=== PATIENT | female | born 1965 | race Caucasian/White ===

== ENCOUNTER 2025-05-20 09:04 | Emergency (ER) | payer OTHER, SELFPAY ==
--- NOTE | ~2025-05-20 | XR_ITS ---
EXAMINATION: XR KNEE, RIGHT CLINICAL INFORMATION: pain, s/p fall COMPARISON: None available. TECHNIQUE: Four views of the right knee. FINDINGS: No fracture or joint effusion. Alignment is anatomic. Mild tricompartmental joint space narrowing. No abnormal soft tissue calcification. XR/XR knee RT 3V IMPRESSION: No acute bony abnormalities of the right knee. No joint effusion. Mild tricompartmental osteoarthritis. Electronically signed by: Alfonso Kirk MD 05/20/2025 11:16 AM EDT
[2025-05-20 09:14] VITALS: BP 128/55; PULSE 66; RESP 16; TEMP 36; O2SAT 98; BMI 37.9
--- NOTE | 2025-05-20 11:34 | ED.EXTPRO ---
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 No other trauma reported. She notes it hurrts to walk. When it is bad she takes tylenol. She has not called her orthopedist or PCP. She denies swelling. MD Complaint: joint pain Onset (ago): week(s) (2) Pain Consistency: constant Location: right and knee Quality: aching Radiation: none Relieving factors: immobilization Exacerbating factors: weight bearing, walking and palpation Associated symptoms: denies other symptoms Context: other (fall) Related Data Previous Rx's ?Medication ?Instructions ?Recorded cyclobenzaprine 5 mg tablet 5 mg PO BID PRN muscle spasm #14 05/20/25 tabs lidocaine 5 % topical ointment 1 appl topical BEDTIME PRN pain 05/20/25 #30 grams Allergies Allergy/AdvReac Type Severity Reaction Status Date / Time No Known Allergies Allergy Verified 05/20/25 09:17 Review of Systems Review of Systems: Constitutional : No Fever, No Chills ENT/Mouth : No Ear Pain, No Hoarseness, No sore throat Eyes: No Eye Pain, No Swelling Cardiovascular : No Chest Pain, No SOB Respiratory : No Cough, No Dyspnea Gastrointestinal : No Nausea, No Vomiting Musculoskeletal : positive joint pain, No Myalgias, No Joint Swelling Skin : No Skin lacerations, No rash Neuro : No Weakness, No Numbness All other systems reviewed and are negative [facility] Past Medical History Attestation statement: The following information was validated with the patient. Source: old records reviewed Medical History Hypothyroidism Diabetes HTN (hypertension) Social History Social History (Updated 05/20/25 @ 11:39 by Bernarda Pritchard DO) Patient Tobacco Use Status: Never used Tobacco Physical Exam Vital Signs: Vital Signs: Last Vital Signs Temp 96.8 F 05/20/25 09:14 Pulse 66 05/20/25 09:14 Resp 16 05/20/25 09:14 BP 128/55 L 05/20/25 09:14 Pulse Ox 98 05/20/25 09:14 O2 Del Method Room Air 05/20/25 09:14 BMI result Body Mass Index 37.9 Appearance: Alert. Oriented X3. No acute distress. Eyes: Pupils equal, round and reactive to light. ENT: Pharynx normal. Neck: Normal inspection. . CVS: Normal heart rate and rhythm. Pulses normal. Respiratory: No respiratory distress. Breath sounds normal. Abdomen: atraumatic Skin: Skin warm and dry. Normal skin color. Extremities: No lower extremity edema. R knee no effusion, distal NV intact, SILT intact, pain along lateral aspect on joint line no discoloration, redness, no warmth. Pain with ROM testing, her ACL/MCL/LCL appear intact Neuro: Oriented X 3. No motor deficit. No sensory deficit. CN2-12 intact Medical Decision Making Medical Decision Making MDM Narrative: 59 yo female with PMH of prior R knee pain has seen orthopedist at [facility] - she has had steroid injections in the past, DM, HTN, hypothyroidism here with R knee pain which is chronic but worse after fall - she is NV intact, no signs of infection, no signs of calf pain/swelling to suggest DVT - at this time xray ordered and we discussed concern for internal injury that her PCP needs to get MRI as well as follow up with orthopedics. Start on topical gel and PRN flexeril as needed. Differential Diagnosis Differential Diagnoses: The differential diagnosis associated with the presentation includes sprain, strain, arthritis, internal injury such as meniscus injury NV exam normal pulses intact Independent Interpretation I performed an independent interpretation of an: Plain X-Ray (no fracture) Radiology Impression Discussion of test interpretation with radiology: I have reviewed the radiologist's reading. External Record Review External record reviewed: Outpatient record Prescription Management I considered prescription management with: Pain Medication and Other Discharge Plan Discharge Clinical Impression: Arthralgia of knee, right Patient Disposition: Home, Self-Care Instructions: Knee Pain (ED), Arthralgia (ED) Additional Instructions: your xray shows arthritis there is concern for possible injury to your meniscus of the knee please talk to your primary care doctor about getting MRI establish care again with your orthopedic doctor at [facility] return for any worsening symptoms or concerns. Prescriptions: New cyclobenzaprine 5 mg tablet 5 mg PO BID PRN (Reason: muscle spasm) Qty: 14 0RF lidocaine 5 % ointment 1 appl topical BEDTIME PRN (Reason: pain) Qty: 30 0RF Print Language: Sinhala
[2025-05-20 11:35] VITALS: BP 124/57; PULSE 56; RESP 18; O2SAT 95
[2025-05-20 11:38] VITALS: BP 124/57; PULSE 56; RESP 18; TEMP 36; O2SAT 95
--- OUTSIDE RECORDS SUMMARY | 2025-05-20 12:08 | XMS_ITS | Data Portability ---
Author Organization [facility], Main Office Address [address] [place] [id number] Assessment Encounter Date Assessment Date Assessment LastModified by Organization Details LastModified Time 09/05/2022 09/05/2022 Patient presente d to office today for their Medicare Annual Wellness Visit. Education was provided on healthy nutrition, including a diet rich in fruits and vegetables, minimizing simple carbohydrates, salt, and saturated fats. Encouraged regular cardiovascular exercise such as walking at least 30 minutes daily, 5 times per week. Emphasized preventive health measures and educated pt on fall prevention and community-based lifestyle interventions to help reduce health risks and promote healthy living. Not available 09/05/2022 13:29:53 Plan of Treatment Reminders Order Date Submit Date Provider Last Modified By Organization Details Last Modified Time Details Appointments None recorded. Lab CBC w/ auto diff [email or web address], [address] [place], [address], 3 15:49:02 CMP, serum or plasma 2021 022 [email or web address] [facility], [address] [place], [address], 3 15:49:03 HbA1c (hemoglobin A1c), blood 2021 [email or web address] [facility], [address] [place], [address], 3 15:49:03 CT + NG RNA, PCR, unspecified specimen 2021 [facility], [address] [place], [address], 2 09:25:42 RPR (rapid plasma reagin), serum 2021 [facility], [address] [place], [address], 2 09:25:43 HIV 1+2 AB + HIV 1 p24 Ag, qualitative immunoassay , serum [address], [address] [place], [address], 3 15:49:03 TSH, ultra-sensi tive, serum [address], [address] [place], [address], 3 15:49:04 HBsAg (hepatitis B surface Ag), serum 2021 [facility], [address] [place], [address], 2 09:25:40 hepatitis C virus Ab, serum 2021 [facility], [address] [place], [address], 2 09:25:40 gamma-gluta myl transferase (ggt), serum [address], [address] [place], [address], 3 15:49:04 lipid panel, serum [address], [address] [place], [address], 3 15:49:04 microalbumi n/creatinin e, mass ratio, urine 2021 [email or web address], [address] [place], [address], 3 15:49:04 vitamin D, 25-hydroxy, total, serum 2021 [email or web address], [address] [place], [address], 3 15:49:05 vitamin B12, serum [email or web address], [address] [place], [address], 3 15:49:05 H pylori urea breath test, co2 infrared 2021 [facility], [address] [place], [address], 2 09:25:41 TSH, serum or plasma 2021 [employer], [address] [place], [address], 2 06:09:55 T4, free, serum 2021 [employer] [facility], [address] [place], [address], 3 05:00:51 Referral orthopedic surgeon referral - B knee pain and LBP 2021 [email or web address], [address] [facility], [address], [place], [address], 2 09:04:00 cardiologis t referral - CHF, SOB 2021 [email or web address] Paul Quinn MD, [address] [facility], [address], [place], [address], 2 09:05:23 Procedures None recorded. Surgeries None recorded. Imaging MAMMO, screening, bilateral - screening [address] ([facility]), [address] [place] [address], [address], 3 16:21:34 bone density - screening [address] ([facility]), [address] [place] [address], [address], 3 16:21:34 MAMMO, screening, bilateral - [facility] [address] [place] [address], [address], 3 16:29:02 Medication Orders lidocaine-p rilocaine 2.5 %-2.5 % topical cream 2022 023 [facility], [address] [place], [address], 3 13:47:48 gabapentin 300 mg capsule 2022 023 [facility], [address] [place], [address], 3 13:47:50 atorvastati n 20 mg tablet 2022 023 [facility], [address] [place], [address], 3 13:47:50 aspirin 81 mg tablet,sweta yed release 2022 023 [facility], [address] [place], [address], 3 13:47:49 Farxiga 10 mg tablet 2022 023 [facility], [address] [place], [address], 3 13:47:50 metformin 1,000 mg tablet 2022 023 [facility], [address] [place], [address], 3 13:47:49 Trulicity 1.5 mg/0.5 mL subcutaneou s pen injector 2022 023 [facility], 09[address] [facility] [place], [address], 3 13:47:51 meclizine 25 mg tablet 2022 023 [facility], [address] [place], [address], 3 13:47:48 omeprazole 20 mg capsule,del ayed release 2022 023 [facility], 09-25 [facility] [place], [address], 3 13:47:49 Myrbetriq 25 mg tablet,exte nded release 2022 023 [facility], [address] [place], [address], 3 13:47:51 levothyroxi ne 137 mcg tablet 2022 023 [facility], [address] [place], [address], 3 13:47:46 lidocaine-p rilocaine 2.5 %-2.5 % topical cream 2021 022 [facility], [address] [place], [address], 13:41:32 gabapentin 300 mg capsule 2021 [facility], [address] [place], [address], 13:41:31 atorvastati n 20 mg tablet 2021 [facility], [address] [place], [address], 13:41:32 aspirin 81 mg tablet,sweta yed release 2021 [facility], [address] [place], [address], 13:41:34 Farxiga 10 mg tablet 2021 [facility], [address] [place], [address], 13:41:33 metformin 1,000 mg tablet 2021 [facility], [address] [place], [address], 13:41:35 Trulicity 1.5 mg/0.5 mL subcutaneou s pen injector 2021 [facility], [address] [place], [address], 13:41:29 Myrbetriq 25 mg tablet,exte nded release 2021 [facility], [address] [place], [address], 13:41:31 simethicone 180 mg capsule 2021 [facility], [address] [place], [address], 13:41:36 diclofenac 1 % topical gel 2021 [facility], [address] [place], [address], 13:41:34 meclizine 25 mg tablet 2021 [facility], [address] [place], [address], 13:41:29 omeprazole 20 mg capsule,del ayed release 2021 [facility], 09[address] [place], [address], 13:41:30 levothyroxi ne 137 mcg tablet 2021 [facility], [address] [place], [address], 13:41:35 lidocaine-p rilocaine 2.5 %-2.5 % topical cream 2021 [facility], [address] [place], [address], 14:02:18 gabapentin 300 mg capsule 2021 [facility], 09[address] [place], [address], 14:02:22 atorvastati n 20 mg tablet 2021 [facility], [address] [place], [address], 14:02:18 aspirin 81 mg tablet,sweta yed release 2021 [facility], 09[address] [place], [address], 14:02:08 Farxiga 10 mg tablet 2021 [facility], 09[address] [place], [address], 14:02:13 metformin 1,000 mg tablet 2021 [facility], 09[address]25 [place], [address], 14:02:04 Trulicity 1.5 mg/0.5 mL subcutaneou s pen injector 2021 [facility], [address]25 [place], [address], 14:02:05 Myrbetriq 25 mg tablet,exte nded release 2021 [facility], [address] [place], [address], 14:02:09 simethicone 180 mg capsule 2021 [facility], [address] [place], [address], 14:02:15 fluticasone propionate 50 mcg/actuati on nasal spray,suspe nsion 2021 [facility], [address] [place], [address], 14:02:11 montelukast 10 mg tablet 2021 [facility], [address] [place], [address], 14:02:14 loratadine 10 mg tablet 2021 [facility], [address] [place], [address], 14:02:17 diclofenac 1 % topical gel 2021 [facility], [address] [place], [address], 14:02:22 meclizine 25 mg tablet 2021 [facility], [address] [place], [address], 14:02:15 omeprazole 20 mg capsule,del ayed release 2021 [facility], [address] [place], [address], 14:02:04 levothyroxi ne 137 mcg tablet 2021 [facility], 09[address] [place], [address], 14:02:10 gabapentin 300 mg capsule 2021 [facility], [address] [place], [address], 14:14:08 simethicone 180 mg capsule 2021 [facility], 09[address]25 [place], [address], 14:14:11 lidocaine-p rilocaine 2.5 %-2.5 % topical cream 2021 [facility], [address] [place], [address], 14:14:05 fluticasone propionate 50 mcg/actuati on nasal spray,suspe nsion 2021 [facility], [address] [place], [address], 14:14:08 montelukast 10 mg tablet 2021 [facility], 09[address] [place], [address], 14:14:14 loratadine 10 mg tablet 2021 [facility], [address] [place], [address], 14:14:09 atorvastati n 20 mg tablet 2021 [facility], [address] [place], [address], 14:14:09 aspirin 81 mg tablet,sweta yed release 2021 [facility], [address] [place], [address], 14:14:06 Farxiga 10 mg tablet 2021 [facility], [address] [place], [address], 14:14:01 metformin 1,000 mg tablet 2021 [facility], [address] [place], [address], 14:14:12 Trulicity 1.5 mg/0.5 mL subcutaneou s pen injector 2021 [facility], [address] [place], [address], 14:14:10 diclofenac 1 % topical gel 2021 [facility], [address] [place], [address], 14:14:11 meloxicam 15 mg tablet 2021 [facility], [address] [place], [address], 14:14:07 meclizine 25 mg tablet 2021 [facility], [address] [place], [address], 14:14:04 omeprazole 20 mg capsule,del ayed release 2021 [facility], [address] [place], [address], 14:14:06 Myrbetriq 25 mg tablet,exte nded release 2021 [facility], [address] [place], [address], 14:14:00 levothyroxi ne 125 mcg tablet 2021 [facility], [address] [place], [address], 14:14:07 simethicone 180 mg capsule 2021 [facility], [address] [place], [address], 06/22/202 2 13:34:36 azelastine 0.05 % eye drops 2021 [facility], [address] [place], [address], 2 13:34:35 lidocaine-p rilocaine 2.5 %-2.5 % topical cream 2021 [facility], [place], [address], 13:34:27 fluticasone propionate 50 mcg/actuati on nasal spray,suspe nsion 2021 [facility], [address] [place], [address], 13:34:32 montelukast 10 mg tablet 2021 [facility], [address] [place], [address], 13:34:34 loratadine 10 mg tablet 2021 [facility], [address] [place], [address], 13:34:35 atorvastati n 20 mg tablet 2021 [facility], [address] [place], [address], 2 13:34:31 aspirin 81 mg tablet,sweta barbrad release 2021 [facility], [place], [address], 2 13:34:36 Farxiga 10 mg tablet 2021 [facility], [address] [place], [address], 13:34:26 metformin 1,000 mg tablet 2021 [facility], [address] [place], [address], 13:34:26 Trulicity 1.5 mg/0.5 mL subcutaneou s pen injector 2021 [facility], [address] [place], [address], 13:34:29 diclofenac 1 % topical gel 2021 [facility], [address] [place], [address], 13:34:33 meloxicam 15 mg tablet 2021 [facility], [address] [place], [address], 13:34:31 meclizine 25 mg tablet 2021 [facility], [address] [place], [address], 13:34:28 Vitamin D3 50 mcg (2,000 unit) capsule 2021 [facility], [address] [place], [address], 13:34:33 omeprazole 20 mg capsule,del ayed release 2021 [facility], [address] [place], [address], 13:34:25 Myrbetriq 25 mg tablet,exte nded release 2021 022 [facility], [address], [address], 13:34:28 levothyroxi ne 112 mcg tablet 2021 022 [facility], [address] [place], [address], 13:34:30 Patient TargetsNo targets recorded. Patient Instructions Encounter Date Encounter Id Patient Instructions Last Modified By Organization Details Last Modified Time 09/05/2022 [id number] advance care planning: care instructions Not available 09/05/2022 13:36:37 Discussed and explained advance directives such as standard forms to the . Face to face discussion lasted for a duration of ___ minutes. [email or web address] Not available 09/05/2022 12:59:31 Reason for Referral Orthopedic Surgeon Referral for Lumbago with sciatica B knee pain and LBP Referring Physician: Cory Granados, Internal Medicine, Encounter Date: 07/25/2022 Spool Salvager Referral for Co ngestive heart failure CHF, SOB Referring Physician: Cory Granados, Internal Medicine, Encounter Date: 07/25/2022 Results Created Date Observation Date Name Description Value Unit Range Abnormal Flag Note LastModifiedBy Organization Detail LastModifiedTime 05/02/2005/05/2022 TSH W/REF SVIA TO FT4 TSH w/reflex to FT4 6.09 mIU/L high Refer ence Range > or = 20 Years 0.40- 4.50 Pregn tanya Range s First trime ster 0.26- 2.66 Secon d trime ster 0.55- 2.73 Third trime ster 0.43- 2.91 Not Available [facility] [address], [place], [address], 05/05/2022 06:09:53 05/02/2005/05/2022 TSH W/REF SIVA TO FT4 T4, free 1.0 NG/dL 0.8-1. 8 normal Not Available [facility] [place] [facility] [address] [place], [address], 05/05/2022 06:09:53 07/25/2007/28/2022 HIV 1/2 ANTIG EN/AN TIBOD Y,FOU RTH GENER ATION W/RFL HIV Ag/Ab, 4TH gen NON-RE ACTIVE non-re active normal HIV-1 antig en and HIV-1 /HIV- 2 antib odies were not detec deborah. There is no labor atory evide nce of HIV infec tion. PLEAS E NOTE: This infor matio n has been discl osed to you from recor sandra whose confi denti ality may be prote cted by state law. If your state requi res such prote ction , then the state law prohi bits you from joaquín viera any furth er discl osure of the infor matio n witho ut the speci fic writt en conse nt of the perso n to whom it perta ins, or as other san permi tted by law. A gener al autho rizat ion for the relea se of medic al or other infor matio n is NOT suffi cient for this purpo se. For addit ional infor matio n pleas e refer to http: //[facility] julee branham.que stdia gnost ics.c om/fa q/FAQ 106 (This link is being provi ded for infor matio nal/ educa aggie l purpo ses only. ) The perfo rmanc e of this assay has not been clini rogelio valid ated in patie nts less than 2 years old. Not Available [facility] [place] [facility] [address], [place], [address], 07/28/2022 09:25:36 07/25/2007/28/2022 MAGNE SIUM magnesium 2.0 mg/dL 1.5-2. 5 normal Not Available [facility] [place] [facility] [address], [place], [address], 07/28/2022 09:25:36 07/25/20 22 08/06/2022 NT PROBN P nt probnp 66 pg/mL normal For Heart Failu re (HF) diagn osis, refer ence range s in patie nts with dyspn ea are based on Boris DUTTA, et al., J Am Sharri Cardi ol. 2018; 71:11 91-12 00. 18-49 years : < or = 300 pg/mL Ondina l, HF unlik katie > or = 450 pg/mL High proba bilit y of HF 50-75 years : < or = 300 pg/mL Ondina l, HF unlik katie > or = 900 pg/mL High proba bilit y of HF >75 years : < or = 300 pg/mL Ondina l, HF unlik katie > or = 1800 pg/mL High proba bilit y of HF For patie nts with coron sunny heart disea se, the optim al risk categ ory cut point s for incid ent HF or CVD (<253 pg/mL men, <372 pg/mL women ) are based on Luis De La Rosa al., J Am Sharri Cardi ol. 2007; 50:20 5-14. For patie nts with exist ing HF, the optim al risk categ ory cut point for HF progr essio n (<300 pg/mL ) is based on Judah KIM et al., Clin Bioch em. 2010; 43:14 05-10 . For addit ional infor carley mcdonald e refer to http: //[facility] julee silva stdia gnost ics.c om/fa q/FAQ (This link is being provi ded for infor adam hayden/ educa aggie munguia purpo ses only. ) Not Available [facility] [place] [facility] [address], [place], [address], 08/06/2022 00:58:13 07/25/20 22 08/06/2022 VITAM IN D, 1,25 DIHYD EUNICE vitamin D, 1,25 (oh)2, total 52 pg/mL 18-72 Not Available [facility] [place] [facility] [address], [place], [address], 08/06/2022 00:58:14 07/25/2008/06/2022 VITAM IN D, 1,25 DIHYD EUNICE vitamin D3, 1,25 (oh)2 52 pg/mL Not Available [facility] [place] [facility] [address], [place], [address], 08/06/2022 00:58:14 07/25/20 22 08/06/2022 VITAM IN D, 1,25 DIHYD EUNICE vitamin D2, 1,25 (oh)2 <8 pg/mL Vitam in D3, 1,25( OH)2 indic ates both endog enous produ ction and suppl ement ation . Vitam in D2, 1,25( OH)2 is an indic ator of exoge nous sourc es, such as diet or suppl ement ation . Inter preta tion and thera py are based on measu remen t of Vitam in D,1,2 5(OH) 2, Total . This test was silver kaufman and its dennis tical perfo rmanc e milagro cteri stics have been deter mined by [facility] erika chandler [facility], [place], [place]. It has not been clear ed or appro tc by the FDA. This assay has been valid ated pursu ant to the CLIA regul ation s and is used for clini thuy purpo ses. Not Available [facility] [place] [facility] [address], [place], [address], 08/06/2022 00:58:14 07/25/2007/28/2022 SED RATE BY MODIF IED LOYD HOREN sed rate by modified lobitoren 31 mm/h < or = 30 high Not Available [facility] [place] [facility] [address], [place], [address], 07/28/2022 09:25:38 07/25/2007/28/2022 CBC (H/H, RBC, INDIC ES, WBC, PLT) white blood cell count 10.5 thous and/u L 3.8-10 .8 normal Not Available [facility] [address], [place], [address], 07/28/2022 09:25:38 07/25/20 22 07/28/2022 CBC (H/H, RBC, INDIC ES, WBC, PLT) red blood cell count 4.00 johnie on/uL 3.80-5 .10 normal Not Available [facility] [address], [place], [address], 07/28/2022 09:25:38 07/25/20 22 07/28/2022 CBC (H/H, RBC, INDIC ES, WBC, PLT) hemoglobin 11.8 g/dL 11.7-1 5.5 normal Not Available [facility] [address], [place], [address], 07/28/2022 09:25:38 07/25/20 22 07/28/2022 CBC (H/H, RBC, INDIC ES, WBC, PLT) hematocrit 36.2 % 35.0-4 5.0 normal Not Available [facility] [address], [place], [address], 07/28/2022 09:25:38 07/25/20 22 07/28/2022 CBC (H/H, RBC, INDIC ES, WBC, PLT) MCV 90.5 fL 80.0-1 00.0 normal Not Available [facility] [address], [place], [address], 07/28/2022 09:25:38 07/25/20 22 07/28/2022 CBC (H/H, RBC, INDIC ES, WBC, PLT) MCH 29.5 pg 27.0-3 3.0 normal Not Available [facility] [address], [place], [address], 07/28/2022 09:25:38 07/25/2007/28/2022 CBC (H/H, RBC, INDIC ES, WBC, PLT) MCHC 32.6 g/dL 32.0-3 6.0 normal Not Available [facility] [address], [place], [address], 07/28/2022 09:25:38 07/25/20 22 07/28/2022 CBC (H/H, RBC, INDIC ES, WBC, PLT) RDW 12.7 % 11.0-1 5.0 normal Not Available [facility] [address], [place], [address], 07/28/2022 09:25:38 07/25/2007/28/2022 CBC (H/H, RBC, INDIC ES, WBC, PLT) platelet count 312 thous and/u L 140-40 0 normal Not Available [facility] [address], [place], [address], 07/28/2022 09:25:38 07/25/20 22 07/28/2022 CBC (H/H, RBC, INDIC ES, WBC, PLT) MPV 10.2 fL 7.5-12 .5 normal Not Available [facility] [address], [place], [address], 07/28/2022 09:25:38 07/25/2008/06/2022 URINA LYSIS , COMPL ETE W/REF SIVA TO CULTU RE color YELLOW yellow normal Not Available [facility] [address], [place], [address], 08/06/2022 00:58:15 07/25/2008/06/2022 URINA LYSIS , COMPL ETE W/REF SIVA TO CULTU RE appearance CLEAR clear normal Not Available [facility] [place] [facility] [address], [place], [address], 08/06/2022 00:58:15 07/25/20 22 08/06/2022 URINA LYSIS , COMPL ETE W/REF SIVA TO CULTU RE specific gravity 1.017 1.001- 1.035 normal Not Available [facility] [place] [facility] [address], [place], [address], 08/06/2022 00:58:15 07/25/2008/06/2022 URINA LYSIS , COMPL ETE W/REF SIAV TO CULTU RE pH 5.5 5.0-8. 0 normal Not Available [facility] [place] [facility] [address], [place], [address], 08/06/2022 00:58:15 07/25/20 22 08/06/2022 URINA LYSIS , COMPL ETE W/REF SIVA TO CULTU RE glucose NEGATI VE negati ve normal Not Available [facility] [place] [facility] [address], [place], [address], 08/06/2022 00:58:15 07/25/2008/06/2022 URINA LYSIS , COMPL ETE W/REF SIVA TO CULTU RE bilirubin NEGATI VE negati ve normal Not Available [facility] [place] [facility] [address], [place], [address], 08/06/2022 00:58:15 07/25/20 22 08/06/2022 URINA LYSIS , COMPL ETE W/REF SIVA TO CULTU RE ketones NEGATI VE negati ve normal Not Available [facility] [address], [place], [address], 08/06/2022 00:58:15 07/25/20 22 08/06/2022 URINA LYSIS , COMPL ETE W/REF SIVA TO CULTU RE occult blood NEGATI VE negati ve normal Not Available [facility] [place] [facility] [address], [place], [address], 08/06/2022 00:58:15 07/25/20 22 08/06/2022 URINA LYSIS , COMPL ETE W/REF SIVA TO CULTU RE protein NEGATI VE negati ve normal Not Available [facility] [place] [facility] [address], [place], [address], 08/06/2022 00:58:15 07/25/20 22 08/06/2022 URINA LYSIS , COMPL ETE W/REF SIVA TO CULTU RE nitrite NEGATI VE negati ve normal Not Available [facility] [address], [place], [address], 08/06/2022 00:58:15 07/25/20 22 08/06/2022 URINA LYSIS , COMPL ETE W/REF SIVA TO CULTU RE leukocyte esterase 2+ negati ve abnormal Not Available [facility] [address], [place], [address], 08/06/2022 00:58:15 07/25/20 22 08/06/2022 URINA LYSIS , COMPL ETE W/REF SIVA TO CULTU RE WBC 0-5 /hpf < or = 5 normal Not Available [facility] [address], [place], [address], 08/06/2022 00:58:15 07/25/2008/06/2022 URINA LYSIS , COMPL ETE W/REF SIVA TO CULTU RE RBC NONE SEEN /hpf < or = 2 normal Not Available [facility] [address], [place], [address], 08/06/2022 00:58:15 07/25/20 22 08/06/2022 URINA LYSIS , COMPL ETE W/REF SIVA TO CULTU RE squamous epithelial cells NONE SEEN /hpf < or = 5 normal Not Available [facility] [place] [facility] [address], [address], 08/06/2022 00:58:15 07/25/20 22 08/06/2022 URINA LYSIS , COMPL ETE W/REF SIVA TO CULTU RE bacteria NONE SEEN /hpf none seen normal Not Available [facility] [place] [facility] [address], [address], 08/06/2022 00:58:15 07/25/20 22 08/06/2022 URINA LYSIS , COMPL ETE W/REF SIVA TO CULTU RE hyaline cast NONE SEEN /lpf none seen normal Not Available [facility] [place] [facility] [address], [place], [address], 08/06/2022 00:58:15 07/25/20 22 08/06/2022 URINA LYSIS , COMPL ETE W/REF SIVA TO CULTU RE reflexive urine culture CULTU RE INDIC ATED - RESUL TS TO FOLLO W Not Available [facility] [place] [facility] [address], [address], 08/06/2022 00:58:15 07/25/20 22 08/06/2022 URINA LYSIS , COMPL ETE W/REF SIVA TO CULTU RE culture, urine, routine SEE NOTE abnormal CULTU RE, URINE , ROUTI NE Micro Numbe r: [id number] Test Statu s: Final Speci men Sourc e: Urine Speci men Quali ty: Adequ ate Resul t: 10,00 0-49, 000 CFU/m L of Enter ococc us facyril Tayloranna calis ----- ----- ----- - INT DINA AMPIC ILLIN S <=2 NITRO FURAN TOIN S <=16 VANCO MYCIN S 2 S=Trinity cepti ble I=Int ermed iate R=Res istan t * = Not Teste d NR = Not Repor deborah NN = See Thera py Comme nts Not Available [facility] [place] [facility] [address], [address], 08/06/2022 00:58:15 07/25/20 22 07/28/2022 C-KAYA CTIVE PROTE IN C-reactive protein 15.1 mg/L <8.0 high Not Available [facility] [place] [facility] [address], [place], [address], 07/28/2022 09:25:39 07/25/20 22 07/28/2022 HEPAT ITIS B SURFA CE ANTIG EN W/REF L CONFI RM hepatitis B surface antigen NON-RE ACTIVE non-re active normal Not Available [facility] [place] [facility] [address], [place], [address], 07/28/2022 09:25:39 07/25/20 22 07/28/2022 HEPAT ITIS C AB W/REF L TO HCV RNA, QN, PCR hepatitis C antibody NON-RE ACTIVE non-re active normal Not Available [facility] [place] [facility] [address], [address], 07/28/2022 09:25:40 07/25/20 22 07/28/2022 HEPAT ITIS C AB W/REF L TO HCV RNA, QN, PCR index 0.16 <1.00 normal HCV antib luis was non-r eacti ve. There is no labor atory evide nce of HCV infec tion. In most cases , no furth er actio n is requi red. Howev er, if recen t HCV expos ure is suspe cted, a test for HCV RNA (test code 30518 ) is sugge sted. For addit ional infor matdheeraj n pleas e refer to http: //edu catio n.que stdia gnost ics.c om/fa q/FAQ 22v1 (This link is being provi ded for infor matdheeraj nal/ educa aggie l purpo ses only. ) Not Available [facility] [place] [facility] [address] [place], [address], 07/28/2022 09:25:40 07/25/20 22 07/28/2022 HEPAT ITIS B SURFA CE AB IMMUN ITY, QN hepatitis B surface Ab immunity, qn TNP TEST NOT PERFO RMED Test order ed in error . Not Available [facility] [place] [facility] [address], [place], [address], 07/28/2022 09:25:40 07/25/20 22 08/06/2022 HELIC OBACT ER PYLOR I, UREA BREAT H TEST helicobacter pylori, urea breath test NOT DETECT ED not detect ed normal Antim icrob ials, dao n pump inhib itors , and bismu th prepa ratio ns are known to suppr ess H. pylor i, and inges tion of these prior to H. pylor i diagn ostic testi ng may lead to false negat kenia resul ts. If clini rogelio indic ated, the test may be repea deborah on a new speci men obtai garret two weeks after disco ntinu ing treat ment. Howev er, a posit kenia resul t is still clini rogelio valid . Not Available [facility] [place] [facility] [address], [place], [address], 08/06/2022 00:58:18 07/25/20 22 07/28/2022 VITAM IN B12/F OLATE , SERUM PANEL vitamin B12 1830 pg/mL 200-11 00 high Not Available [facility] [place] [facility] [address], [address], 07/28/2022 09:25:41 07/25/20 22 07/28/2022 VITAM IN B12/F OLATE , SERUM PANEL folate, serum 8.6 NG/mL normal Refer ence Range Low: <3.4 Borde rline : 3.4-5 .4 Ondina l: >5.4 Not Available [facility] [place] [facility] [address], [address], 07/28/2022 09:25:41 07/25/20 22 07/28/2022 TSH W/REF SIVA TO FT4 TSH w/reflex to FT4 0.66 mIU/L normal Refer ence Range > or = 20 Years 0.40- 4.50 Pregn tanya Range s First trime ster 0.26- 2.66 Secon d trime ster 0.55- 2.73 Third trime ster 0.43- 2.91 Not Available [facility] [place] [facility] [address], [address], 07/28/2022 09:25:42 07/25/20 22 07/28/2022 CHLAM YDIA/ N. GONOR RHOEA E RNA, TMA, UROGE NITAL chlamydia trachomatis RNA, tma, urogenital NOT DETECT ED not detect ed normal Not Available [facility] [place] [facility] [address], [address], 07/28/2022 09:25:42 07/25/20 22 07/28/2022 CHLAM YDIA/ N. GONOR RHOEA E RNA, TMA, UROGE NITAL neisseria gonorrhoeae RNA, tma, urogenital NOT DETECT ED not detect ed normal Not Available [facility] [place] [facility] [address], [address], 07/28/2022 09:25:42 07/25/20 22 07/28/2022 CHLAM YDIA/ N. GONOR RHOEA E RNA, TMA, UROGE NITAL comment The dennis tical perfo rmanc e milagro cteri stics of this assay , when used to test SureP ath(T M) speci mens have been deter mined by [facility]. The modif icati ons have not been clear ed or appro tc by the FDA. This assay has been valid ated pursu ant to the CLIA regul ation s and is used for clini thuy purpo ses. For addit ional reaganr carley mcdonald refer to https ://ed ucati on.qu juanSolace [employer]. Immedia/f aq/FA Q154 (This link is being provi ded for infor adam branham/ johana marcial l purpo ses only. ) Not Available [facility] [place] [facility] [address], [address], 07/28/2022 09:25:42 07/25/2008/06/2022 RPR (DX) W/REF L TITER AND CONFI RMATO RY TESTI NG RPR (DX) w/refl titer and confirmatory testing REACTI VE non-re active abnormal Not Available [facility] [place] [facility] [address], [address], 08/06/2022 00:58:20 07/25/20 22 08/06/2022 RPR (DX) W/REF L TITER AND CONFI RMATO RY TESTI NG RPR titer 1:1 high Not Available [facility] [place] [facility] [address], [address], 08/06/2022 00:58:20 07/25/2008/06/2022 FTA-A BS fta-abs NONREA CTIVE nonrea ctive The FTA-A BS is a trepo nemal assay that is inten ded to be used with other tests (e.g. , RPR) as part of a diagn ostic algor ithm in the diagn osis of syphi lis. Not Available [facility] [place] [facility] [address], [address], 08/06/2022 00:58:13 07/25/20 22 07/25/2022 HbA1c (hemo globi n A1c), blood A1C 6.7 Not Available Not Availa ble 07/26/2022 11:42:02 07/25/20 22 07/25/2022 lipid panel , blood A1C 6.7 Not Available Not Availa ble 07/26/2022 11:42:01 07/25/20 22 07/25/2022 CMP, serum or plasm a A1C 6.7 Not Available Not Availa ble 07/26/2022 11:39:27 11/21/19 23 11/26/2022 MAGNE SIUM magnesium 2.0 mg/dL 1.5-2. 5 normal Not Available [facility] [place] [facility] [address], [place], [address], 11/26/2022 07:47:10 11/21/19 23 11/21/2022 GFR, estim ated (eGFR ), serum A1C 7.1 Not Available Not Availa ble 11/22/2022 20:50:44 11/21/19 23 11/21/2022 BMP, serum or plasm a A1C 7.1 Not Available Not Availa ble 11/22/2022 20:50:44 11/21/19 23 11/21/2022 HbA1c (hemo globi n A1c), blood A1C 7.1 Not Available Not Availa ble 11/22/2022 20:49:56 Result Notes None recorded. Problems Name Problem SNOMED Code Status Onset Date Resolution Date Notes Provider Name and Address Organization Details Recorded Time Hypothyr oidism 28304898 Active 2019 JEISON JS [employer], [facility] 0 16:03:33 Hyperten sive disorder 06493699 Active 2019 JEISON [employer] [facility] 0 16:03:37 Impaired glucose toleranc e 3550796 Active 2019 JEISON JS null, [employer], [employer] 0 16:03:42 Hypercho lesterol emia 08117216 Active 2019 JEISON JS [employer], [facility] 0 16:03:47 Depressi ve disorder 54768417 Active 2019 JEISON JS null, [place] - [employer] 0 16:03:53 Anxiety disorder 426471362 Active 2019 JEISON JS null, [facility] 0 16:03:59 Insomnia 082992477 Active 2019 JEISON JS null, [place] [facility] 0 16:04:08 Arthriti s 7043341 Completed 201907/15/2020 Cory Granados, DO [address] [facility],[address], [place], [address] , [facility] [employer] 0 16:38:28 Edema of lower extremit y 980773484 Active 2019 JEISON JS null, [place] [facility] 0 16:04:42 Fibromya lgia 660365093 Completed 201907/15/2020 AALIYAH BUSCH null, [place] [facility], [employer] 1 16:25:47 Internal hemorrho ids 82584644 Active 2019 JEISON JS null, [place] [facility] 0 16:12:09 Primary fibromya lgia syndrome 14791472 Active 2019 Cory Granados, DO [address] [place] [address],[address], [place], [address] , [facility] 0 16:37:49 Endometr ial biopsy Active 2019 Cory Granados, [address], [place], [address] , [facility] 0 16:38:13 Morbid obesity 506957452 Active 2019 Cory Granados, DO [address] [place] [address],[address], [place], [address] , [facility] [employer] 0 16:38:22 Osteoart hritis 428539092 Active 2019 Cory Granados, DO [address] [place] [address],[facility] [address], [place], [address] , [employer] 0 16:38:33 Ophthalm ic migraine 26454856 Active 2019 Cory Granados, [address],[facility] [address], [place], [address] , [facility] 0 16:40:17 Vertigo 883045760 Active 2019 Cory Granados, [address],[facility] [address] , [place], [address] , [employer] 0 16:40:23 Multiple complica tions due to type 2 diabetes mellitus Active 2019 Cory Granados [address],[facility] [address], [place], [address] , [facility] 0 16:40:40 Chronic low back pain 432925975 Active 2019 s/p LESI, [facility] pain mgmt Cory Granados, [address],[facility] [address] , [place], [address] , [facility] 0 16:41:04 Visual impairme nt 321359067 Active 2019 glasses Cory Granados, [address],[facility] [address] , [place], [address] , [facility] 0 16:41:43 Pain of sacroili ac joint 480659247 Active 2019 Cory Granados, [address],[facility] [address], [place], [address] , [place] [employer] 0 16:42:11 Greater trochant carlos pain syndrome 3825195 Active 2019 Cory Granados, [address],[facility] [address], [place], [address] , [facility] 0 16:42:33 Iliotibi al band friction syndrome 197148820 Active 2019 Cory Granados, DO [address] [facility],[address], [place], [address] , [place] [employer], [employer] 0 16:42:42 Lumbago with sciatica 189753457 Active 2019 Cory Granados, DO [address] [facility],[address], [place], [address] , [employer], [employer] 0 16:43:02 Gasping for breath 25850600 Active 2020 AALIYAH JO-ANN [employer], [facility] [employer], [employer] 1 09:28:20 Fibromya lgia 877648118 Active 2020 AALIYAH JO-ANN null, [facility] [employer], [employer] 16:25:47 Migraine 17552339 Active 2020 AALIYAH JO-ANN [employer], [facility] [employer], [employer] 1 16:27:13 Gastroes ophageal reflux disease without esophagi tis 029972233 Active 2020 AALIYAH JO-ANN [employer], [facility] [employer], [employer] 1 16:27:58 Urinary incontin ence 696697379 Active 2020 AALIYAH JO-ANN null, [facility] [employer], [employer] 1 16:33:54 Seasonal allergic rhinitis 790025379 Active 2020 AALIYAH JO-ANN null, [facility] [employer], [employer] 1 16:49:41 Mixed anxiety and depressi ve disorder 287113582 Active 2020 AALIYAH JO-ANN null, [facility] [employer], [employer] 1 16:49:47 Vitamin D deficien cy 39435130 Active 2020 AALIYAH JO-ANN null, [employer], [employer] 16:49:50 Cobalami n deficien cy 354255674 Active 2020 AALIYAH JO-ANN null, [place] [facility], [employer] 1 16:49:54 Cobalami n deficien cy 188113725 Active 2020 AALIYAH JO-ANN null, [facility] 1 16:49:58 Chest pain 48636071 Active 2020 AALIYAH BUSCH null, [employer] 1 16:50:21 Dysuria 28516412 Active 2020 AALIYAH BUSCH null, [facility] 1 11:14:00 Fatigue 76310183 Active 2020 AALIYAH BUSCH [employer], [facility] 1 11:23:35 Bilatera l knee pain Active 2020 AALIYAH BUSCH [employer], [facility] 1 11:25:55 Changes in skin texture 251103275 Active 2020 AALIYAH BUSCH [employer], [facility] 1 09:32:39 Pain of left wrist 41942854822 9102 Active 2020 AALIYAHKENNETH BUSCH [employer], [facility] 1 14:21:15 Elevated blood-pr essure reading without diagnosi s of hyperten buddy 483998132 Active 2020 AALIYAH BUSCH [employer], [facility] 1 16:38:16 Problem Notes None recorded. Procedures Surgical History Date Name Laterality Status Provider Name and Address Organization Details Recorded Time delivery completed JEISON [employer] 07/15/2020 16:08:32 repair of umbilical hernia completed JEISON [employer] 07/15/2020 16:08:44 Imaging Results None recorded. Procedure Notes None recorded. Medical Equipment None Reported. Allergies Allergen ID Allergen Name Allergen Category Reaction Reaction Severity Criticality Documentation Date Start Date Code Code System Note Provider Name and Address Organization Details Recorded Time 3839 cyclobenz aprine medicatio n confusion moderate Not available 07/15/2020 51955 [facility] Cory Granados, DO [address] [place] [address], [place], [address] [facility] [employer] 0 16:56:36 Medications Name Sig Start Date Stop Date Status Note LastModified by Organization Details LastModified Time Prescriptio n - Prior Authorizati on Request active Not Available Not Available N ot Available metformin 500 mg tablet TAKE 1 TABLET BY MOUTH TWICE DAILY active Not Available Not Available No t Available levothyroxi ne 137 mcg tablet Take 1 tablet every day by oral route before meals. 2022 active Not Available Not Available Not Avai lable azelastine 0.05 % eye drops ONE DROP IN EACH EYE TWICE A DAY DIRECTED active Not Available Not Available No t Available acetaminoph en 325 mg tablet Take 1 tablet as needed by oral route for 15 days. 07/15 completed Not Available Not Available Not Available gabapentin 600 mg tablet Take 1 tablet every day by oral route at bedtime. 02/06 completed Not Available Not Available Not Available doxycycline hyclate 100 mg capsule 07/15 completed Not Available Not Available Not Available atorvastati n 20 mg tablet TAKE ONE TABLET BY MOUTH AT BEDTIME active Not Available Not Available No t Available cetirizine 10 mg tablet Take 1 tablet every day by oral route as needed. 2020 active Not Available Not Available Not Avai lable ampicillin 500 mg capsule Take 1 capsule 3 times a day by oral route. 2021 active Not Available Not Available Not Avai lable ketotifen 0.025 % (0.035 %) eye drops active Not Available Not Available No t Available sumatriptan 100 mg tablet Take 1 tablet every day by oral route as needed. active Not Available Not Available No t Available clotrimazol e-betametha sone 1 %-0.05 % lotion active Not Available Not Available Not Available meloxicam 15 mg tablet TAKE ONE TABLET BY MOUTH DAILY active Not Available Not Available No t Available FreeStyle Lancets 28 gauge active Not Available Not Available Not Available sumatriptan 5 mg/actuatio n nasal spray TAKE 1 SPRAY EVERY DAY BY NASAL ROUTE. active Not Available Not Available No t Available triamcinolo ne acetonide 0.025 % lotion active Not Available Not Available Not Available sumatriptan 50 mg tablet 03/07 completed Not Available Not Available Not Available hydroxyzine pamoate 50 mg capsule 1 po hs active Not Available Not Available N ot Available hydroxyzine HCl 50 mg tablet TAKE ONE TABLET BY MOUTH THREE TIMES A DAY NEEDED active Not Available Not Available No t Available aspirin 81 mg tablet,sweta yed release TAKE ONE TABLET BY MOUTH DAILY active Not Available Not Available No t Available lidocaine-p rilocaine 2.5 %-2.5 % topical cream APPLY TO AFFECTED AREA TWICE A DAY DIRECTED active Not Available Not Available No t Available levothyroxi ne 100 mcg tablet TAKE ONE TABLET BY MOUTH DAILY active Not Available Not Available No t Available amitriptyli ne 25 mg tablet Take 1 tablet every day by oral route. active Not Available Not Available No t Available lorazepam 0.5 mg tablet active Not Available Not Available Not Available triamcinolo ne acetonide 0.025 % topical cream active Not Available Not Available Not Available meclizine 25 mg tablet Take 1 tablet 3 times a day by oral route as needed. 2022 active Not Available Not Available Not Avai lable cephalexin 500 mg capsule 05/02 completed Not Available Not Available Not Available pantoprazol e 40 mg tablet,sweta yed release 03/07 completed Not Available Not Available Not Available cyanocobala min (vit B-12) 1,000 mcg/mL injection solution 08/12 completed Not Available Not Available Not Available metformin 1,000 mg tablet TAKE ONE TABLET BY MOUTH TWICE A DAY active Not Available Not Available No t Available levothyroxi ne 125 mcg tablet TAKE ONE TABLET BY MOUTH DAILY BEFORE MEALS active Not Available Not Available No t Available buspirone 10 mg tablet TAKE ONE TABLET BY MOUTH THREE TIMES A DAY active Not Available Not Available No t Available clotrimazol e-betametha sone 1 %-0.05 % topical cream active Not Available Not Available Not Available polymyxin B sulfate 10,000 unit-trimet hoprim 1 mg/mL eye drops 07/15 completed Not Available Not Available Not Available gabapentin 300 mg capsule TAKE ONE CAPSULE BY MOUTH TWICE A DAY active Not Available Not Available No t Available buspirone 7.5 mg tablet TAKE ONE TABLET BY MOUTH TWICE A DAY active Not Available Not Available No t Available omeprazole 20 mg capsule,del ayed release TAKE ONE CAPSULE BY MOUTH DAILY BEFORE MEALS active Not Available Not Available No t Available montelukast 10 mg tablet TAKE ONE TABLET BY MOUTH AT BEDTIME active Not Available Not Available No t Available hydroxyzine HCl 25 mg tablet active Not Available Not Available Not Available capsaicin 0.025 % topical cream APPLY TO THE AFFECTED AREA(S) BY TOPICAL ROUTE 3 TIMES PER DAY active Not Available Not Available No t Available diclofenac sodium 50 mg tablet,sweta yed release active Not Available Not Available Not Available ibuprofen 600 mg tablet Take 1 tablet 3 times a day by oral route as needed. active Not Available Not Available No t Available fluticasone propionate 50 mcg/actuati on nasal spray,suspe nsion ONE SPRAY IN EACH NOSTRIL DAILY DIRECTED active Not Available Not Available No t Available loratadine 10 mg tablet TAKE ONE TABLET BY MOUTH DAILY active Not Available Not Available No t Available levothyroxi ne 112 mcg tablet TAKE ONE TABLET BY MOUTH DAILY active Not Available Not Available No t Available amoxicillin 500 mg-potassiu m clavulanate 125 mg tablet TAKE ONE TABLET BY MOUTH EVERY TWELVE HOURS UNTIL FINISHED active Not Available Not Available No t Available hydroxyzine pamoate 25 mg capsule 08/12 completed Not Available Not Available Not Available meclizine 25 mg chewable tablet TAKE ONE TABLET BY MOUTH THREE TIMES A DAY NEEDED active Not Available Not Available No t Available Vitamin B-12 2,500 mcg sublingual tablet TAKE ONE TABLET BY MOUTH DAILY active Not Available Not Available No t Available Pneumovax-2 3 25 mcg/0.5 mL injection syringe 03/07 completed Not Available Not Available Not Available escitalopra m 10 mg tablet TAKE 1 12 TABLET DAILY DIRECTED active Not Available Not Available No t Available escitalopra m 20 mg tablet Take 1 tablet every day by oral route. active Not Available Not Available No t Available Gas Relief Ultra Strength 180 mg capsule Take 1 capsule every day by oral route. active Not Available Not Available No t Available cyclobenzap rine 5 mg tablet 07/15 completed Not Available Not Available Not Available bupropion HCl XL 300 mg 24 hr tablet, extended release active Not Available Not Available Not Available bupropion HCl XL 150 mg 24 hr tablet, extended release active Not Available Not Available Not Available topiramate 50 mg tablet TAKE ONE TABLET BY MOUTH DAILY AT BEDTIME active Not Available Not Available No t Available nitrofurant oin monohydrate /macrocryst als 100 mg capsule TAKE ONE CAPSULE BY MOUTH TWICE A DAY UNTIL FINISHED 05/02 completed Not Available Not Available Not Available solifenacin 5 mg tablet 05/02 completed Not Available Not Available Not Available solifenacin 10 mg tablet Take 1 tablet every day by oral route. active Not Available Not Available No t Available Boostrix Tdap 2.5 Lf unit-8 mcg-5 Lf/0.5 mL intramuscul ar syringe 03/07 completed Not Available Not Available Not Available pregabalin 150 mg capsule 03/07 completed Not Available Not Available Not Available FreeStyle Lite Strips Take 1 strip every day by miscell. route. active Not Available Not Available No t Available diclofenac 1 % topical gel APPLY 2 GRAMS TO AFFECTED AREA FOUR TIMES A DAY DIRECTED active Not Available Not Available No t Available Vitamin D3 50 mcg (2,000 unit) capsule TAKE ONE CAPSULE BY MOUTH DAILY active Not Available Not Available No t Available Myrbetriq 25 mg tablet,exte nded release TAKE ONE TABLET BY MOUTH DAILY active Not Available Not Available No t Available Farxiga 10 mg tablet TAKE ONE TABLET BY MOUTH DAILY active Not Available Not Available No t Available Trulicity 1.5 mg/0.5 mL subcutaneou s pen injector INJECT 0.5 ML EVERY WEEK BY SUBCUTANE OUS ROUTE. active Not Available Not Available No t Available Shingrix (PF) 50 mcg/0.5 mL intramuscul ar suspension, kit 03/07 completed Not Available Not Available Not Available 8HR Muscle Aches-Pain 650 mg tablet,exte nded release TAKE ONE TABLET BY MOUTH THREE TIMES A DAY NEEDED active Not Available Not Available No t Available Ajovy Syringe 225 mg/1.5 mL subcutaneou s active Not Available Not Available Not Available Fluzone Quad 60 mcg (15 mcg x 4)/0.5 mL intramuscul ar susp. 07/15 completed Not Available Not Available Not Available Ubrelvy 100 mg tablet active Not Available Not Available No t Available Ajovy 225 mg/1.5 mL subcutaneou s auto-inject or active Not Available Not Available Not Available Afluria Qd (36 mos up)(PF)60 mcg (15 mcg x4)/0.5 mL IM syringe 03/07 completed Not Available Not Available Not Available Vitals Date Recorded Body height Oxygen saturation Oxygen saturation in Arterial blood by Pulse oximetry Body mass index (BMI) Body weight Body temperature Respiratory rate Heart rate Systolic And Diastolic Provider Name and Address Organization Details Last Updated DateTime 3 154.94 cm 98 % 98 % 40.8 kg/m2 54874.9 5 g 97.9 [degF] 12 /min 66 /min 128/70 mm[Hg] SELVIN WILSON [facility] 3 12:12:35 Date Recorded Body height Heart rate Respiratory rate Body temperature Body mass index (BMI) Body weight Oxygen saturation Oxygen saturation in Arterial blood by Pulse oximetry Systolic And Diastolic Provider Name and Address Organization Details Last Updated DateTime 2 154.94 cm 71 /min 16 /min 98.9 [degF] 44 kg/m2 378763. 02 g 97 % 97 % 120/80 mm[Hg] AZEB AMADOR [facility] 2 13:00:10 Date Recorded Body height Oxygen saturation Oxygen saturation in Arterial blood by Pulse oximetry Body mass index (BMI) Body weight Body temperature Respiratory rate Heart rate Systolic And Diastolic Provider Name and Address Organization Details Last Updated DateTime 2 154.94 cm 100 % 100 % 42.5 kg/m2 950888. 28 g 97.7 [degF] 16 /min 66 /min 120/78 mm[Hg] Kandy [facility] 2 12:42:48 Date Recorded Respiratory rate Provider Name a nd Address Organization Details Last Updated DateTime 07/25/2022 12 /min Cory Granados, [address] [facility], [place], [address], [facility] 07/25/2022 13:36:51 Date Recorded Body height Body mass index (BMI) Body weight Heart rate Body temperature Oxygen saturation Oxygen saturation in Arterial blood by Pulse oximetry Systolic And Diastolic Provider Name and Address Organization Details Last Updated DateTime 2 154.94 cm 42.3 kg/m2 002057. 69 g 67 /min 97.7 [degF] 96 % 96 % 132/88 mm[Hg] Stephaniemeera Luis [facility] 2 12:27:19 Date Recorded Body height Heart rate Respiratory rate Body temperature Body mass index (BMI) Body weight Oxygen saturation Oxygen saturation in Arterial blood by Pulse oximetry Systolic And Diastolic Provider Name and Address Organization Details Last Updated DateTime 10/26/202 2 154.94 cm 62 /min 16 /min 97.8 [degF] 41.6 kg/m2 98909.3 2 g 96 % 96 % 136/77 mm[Hg] VLADIMIR JULIENN [facility] 2 13:03:19 Social History Question Answer Notes LastModified by Organizat ion Details LastModified Time Tobacco Smoking Status Never Smoker JEISON LAWSJENNIFER antonio [facility] [place] 07/15/2020 16:06:30 Do You Have An Advance Directive? No Information n ot available 07/15/2020 Do You Wear A Helmet When Biking? Yes Information not available 09/06/2021 Are You Blind Or Do You Have Difficulty Seeing? No Information n ot available 09/06/2021 Is Blood Transfusion Acceptable In An Emergency? Yes Information not available 09/06/2021 What Is Your Level Of Caffeine Consumption? None Information not available 07/15/2020 How Much Tobacco Do You Chew? None Information not available 07/15/2020 In The 14 Days Before Symptom Onset, Have You Had Close Contact With A Laboratory-confirm ed COVID-19 While That Case Was Ill? No Information n ot available 09/06/2021 In The 14 Days Before Symptom Onset, Have You Had Close Contact With A Person Who Is Under Investigation For COVID-19 While That Person Was Ill? No Information not available 09/06/2021 Have You Been To An Area Known To Be High Risk For COVID-19? No Information not available 09/06/2021 Are You Deaf Or Do You Have Serious Difficulty Hearing? Yes Information not available 09/06/2021 What Type Of Diet Are You Following? REGULAR Information n ot available 07/15/2020 Which Illicit Or Recreational Drugs Have You Used? Denied Information not available 07/15/2020 Have You Processed Blood Or Body Fluids From An Ebola Virus Disease Patient Without Appropriate PPE? No Information not available 09/06/2021 Do You Reside In Or Have You Traveled To An Area Where Ebola Virus Transmission Is Active? No Information not available 09/06/2021 Have There Been Any Changes To Your Family Or Social Situation? No Information no t available 09/06/2021 Are There Any Guns Present In Your Home? No Information not available 07/15/2020 Hard Of Hearing Or Deaf In One Or Both Ears? No Information not available 07/15/2020 Have You Recently Or Are You Planning To Travel To An Area With Zika Virus? No Information not available 09/06/2021 Do You Use Insect Repellent Routinely? No Information not available 09/06/2021 Legally Blind In One Or Both Eyes? No Information no t available 07/15/2020 Live Alone Or With Others? With Others Information not available 07/15/2020 What Was The Date Of Your Most Recent Tobacco Screening? 04/04/2022 [email or web address] Information not available 04/04/2022 How Many Children Do You Have? 2 Information not available 07/15/2020 Do You Have Any Pets? No Information not available 09/06/2021 Do You Use Protection During Sex? No Information not available 07/15/2020 Do You Use Your Seat Belt Or Car Seat Routinely? Yes Information not available 09/06/2021 Seat Belts Used Routinely Yes Information not available 07/15/2020 Are You Sexually Active? No Information not available 07/15/2020 Smoke Alarm In Home Yes Information not available 07/15/2020 Do You Have Smoke And Carbon Monoxide Detectors In Your Home? No Information not available 09/06/2021 At What Age Did You Start Smoking Tobacco? 0 Information not available 07/15/2020 Are You Passively Exposed To Smoke? No Information no t available 09/06/2021 How Much Tobacco Do You Smoke? No Information not available 07/15/2020 General Stress Level Low Information not available 07/15/2020 Do You Use Sunscreen Routinely? No Information not available 09/06/2021 How Many Years Have You Smoked Tobacco? 0 Information not available 07/15/2020 Do You Have Difficulty Walking Or Climbing Stairs? Yes Information not available 09/06/2021 Sex: Unknown Functional Status Question Answer Note LastModified by Organizat ion Details LastModified Time Do you or have you ever used smokeless tobacco? Never used smokeless tobacco Information not available 07/15/2020 Are you currently employed? No Information not available 07/15/2020 Do you have transportation difficulties? No Information not available 09/06/2021 Are you able to care for yourself? Yes Information n ot available 07/15/2020 Do you have difficulty dressing or bathing? Yes Information not available 09/06/2021 Do you or have you ever used e-cigarettes or vape? Never used electronic cigarettes Information not available 07/15/2020 What is your exercise level? None Information not available 07/15/2020 Do you use any illicit or recreational drugs? No Information not available 09/06/2021 Do you or have you ever used any other forms of tobacco or nicotine? No Information not available 09/06/2021 What is your level of alcohol consumption? Occasional Information not available 07/15/2020 Are you able to walk? YESWOREST Information not available 07/15/2020 Do you have difficulty doing errands alone? No Information not available 09/06/2021 What is your occupation? disability Information not available 07/15/2020 Mental Status Question Answer Note LastModified by Organization D etails LastModified Time Do you have difficulty concentrating, remembering or making decisions? No Information no t available 09/06/2021 Family History Nothing Reported. Medical History Condition Response Coronary Artery Disease N Other N Gout N Kidney Stones N Blood Diseases N Hyperthyroidism N Breast Cancer N Blood Transfusion N Hypothyroidism Y Lung Disease N COPD N Depression Y Defects or Inherited Disease N Developmental or Behavioral Disorders N Breast Problem N Difficulty Swallowing N Anesthesia Complications N Meniere's disease N Anxiety Disorder Y Muscle, Joint, or Bone Problems N Obesity Y Vision or Eye Problems N Arthritis Y Polyps N Infertility N Mental Disorder N Cancer N Varicosities N Stroke N Endometriosis N Bladder or Kidney Problems N High Cholesterol Y Liver Disease N Headaches N Fibromyalgia Y Kidney Disease N Allergies/Hayfever Y Heart Problems N Ear or Hearing Problems N Hospitalizations N Thyroid Problems Y GI Problems N ADD/ADHD N Skin Problems N Eating Disorder N Anemia N MRSA exposure N Constipation N Mental Illness N Ovarian Cancer N Diabetes Y Bedwetting N Seizures/Epilepsy N Tuberculosis N AIDS/HIV N Congestive Heart Failure (CHF) N Eczema N Diverticulitis N Abuse/Domestic Violence N Asthma N Reflux/GERD Y Hepatitis N Heart Disease N Pulmonary Embolism N Chronic Ear Infections N Pre-Eclampsia N Hypertension Y Chicken Pox N Autism Spectrum Disorder (ASD) N Osteoporosis N Thrombophilias N Gynecological History Statement/Question Response STIs/STDs N HPV Vaccine N Sexual Problems? N Sexually Active? N Obstetrics History GPAL:G 2 P 2 0 0 2 Type Value Full Term 2 Living 2 Total 2 Immunizations Vaccine Type Date Status Note Provider Nam e and Address Organization Details Recorded Time zoster recombinant 0 completed JEISON JS [employer], [facility] 11/21/2020 11:10:57 pneumococcal polysaccharide PPV23 0 completed JEISON JS null, [facility] 11/21/2020 11:11:04 Influenza, split virus, quadrivalent, PF 0 completed JEISNO JS null [facility] 11/21/2020 11:11:13 COVID-19, mRNA, LNP-S, PF, 30 mcg/0.3 mL dose 1 completed DRAKE NEIL [employer], [facility] 12/06/2021 09:24:58 COVID-19, mRNA, LNP-S, PF, 30 mcg/0.3 mL dose 1 completed DRAKE NEIL [employer] [facility] 12/06/2021 09:25:15 Past Encounters Encounter ID Performer Location Encounter Start Date Encounter Closed Date Diagnosis/Indication Diagnosis SNOMED-CT Code Diagnosis ICD10 Code Diagnosis Note [id number] Cory Granados [facility] [address] [facility] [place] [address] 07/15/2020 15:32:49 07/15/2020 16:52:38 Anxiety disorder 155812955 F41.9 Chronic low back pain 27 1258105 M54.5 Depressive disorder 3548 9007 F32.9 Edema of l ower extremity 643842152 R60.0 Hypercholesterolemia 136 37549 E78.00 Hypertensive disorder 38 444076 I10 Hypothyroidism 51553321 E03.9 Internal hemorrhoids 904 60531 K64.8 stable Lumbago with sciatica 20 4949929 M54.40 lyrica + [place] Morbid obesity 073977953 E66.01 diet and exercise Ophthalmic migraine 9565 5001 G43.B0 Osteoarthritis 595257266 M19.90 Primary fi bromyalgia syndrome 39273690 M79.7 Pain of sa croiliac joint 824194543 M53.3 cont rx Multiple complications due to type 2 diabetes mellitus 328988528 E11.8 ada diet asa, met 500, atorva 20 Vertigo 309442404 R42 New patien t screening done 794231125 Z76.89 Viral screening 92282418 4 Z11.59 Neuropathy due to diabetes mellitus 463138588 E11.40 Seasonal a llergic rhinitis 885873508 J30.2 Gastroesop hageal reflux disease 081663459 K21.9 [id number] Cory Granados [facility] [address] [place] [address] 08/12/2020 14:38:58 08/12/2020 17:09:25 Screening for malignant neoplasm of colon 680272471 Z12.11 p Adult heal th examination 962134779 Z00.01 abnormal cpe labs reviewed Screening mammography 24 288938 Z12.31 Screening for osteoporosis 143033016 Z13.820 Screening for cardiovascular system disease 444144699 Z13.6 Abnormal g ait due to muscle weakness 748373651 M62.81 Microscopic hematuria 19 7471386 R31.29 Cobalamin deficiency 190 179796 E53.8 Chronic low back pain 27 0366833 M54.5 Mapap, [place] and Lyrica Depressive disorder 3548 [address] F32.9 Psych-[place] [facility] Hypercholesterolemia 136 63425 E78.2 LDL 93/TG 170 918/20 Hypothyroidism 70546213 E03.9 Internal hemorrhoids 904 04016 K64.8 stable Lumbago with sciatica 20 3933604 M54.40 lyrica + d/c Kenyon Morbid obesity 611886049 E66.01 diet and exercise Ophthalmic migraine 9565 5001 G43.B0 Osteoarthritis 758194619 M19.90 Primary fi bromyalgia syndrome 48529065 M79.7 Pain of sa croiliac joint 803242944 M53.3 cont rx Vertigo 602830820 R42 New patien t screening done 070138525 Z76.89 Viral screening 01912389 4 Z11.59 Neuropathy due to diabetes mellitus 035841351 E11.40 Seasonal a llergic rhinitis 969762547 J30.2 Multiple complications due to type 2 diabetes mellitus 683169494 E11.8 ada diet asa, met 500, atorva 20 Gastroesop hageal reflux disease 792723309 K21.9 [id number] Cory Granados DO [facility] [address] [facility] [place] [address] 10/11/2020 13:17:15 10/11/2020 14:23:54 Osteoarthritis 714169821 M19.90 voltaren 1%, lidocaine, capsaicin Multiple 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 Microscopic hematuria 19 0202260 R31.29 urology 10/13/20-p Cobalamin deficiency 190 799904 E53.8 b12 Chronic low back pain 27 7337217 M54.5 Mapap Depressive disorder 3548 [address]32.[address]-[place] [facility] Hypercholesterolemia 136 28121 E78.2 LDL 93/TG 170 07/29/20 Hypothyroidism 32223636 E03.9 levothyrox ine 100 mcg Internal hemorrhoids 904 22554 K64.8 stable Lumbago with sciatica 20 2799402 M54.40 ibuprofen 600mg Morbid obesity 433515130 E66.01 diet and exercise Ophthalmic migraine 9565 5001 G43.B0 topiramate 50, SUMAtripta n Pain of sa croiliac joint 355572205 M53.3 cont rx Vertigo 659825774 R42 meclizine 25 Neuropathy due to diabetes mellitus 337741964 E11.40 gabapentin Seasonal a llergic rhinitis 248656941 J30.2 montelukas t, loratadine d/c cetirizine Gastroesop hageal reflux disease 453040589 K21.9 omeprazole 20 mg Anxiety disorder 3861656 06 F41.9 followed by psych [address] Shoulder joint pain 2679 89039 M25.519 Active or passive immunization 911621646 Z23 UTD-p [id number] Cory Granados DO [facility] [address] [facility] [place] [address] 11/21/2020 10:52:38 11/21/2020 12:05:15 Hypertensive disorder 86369023 I10 BP 126/70 on 11/21/20 Osteoarthritis 709223895 M19.90 voltaren 1%, lidocaine, capsaicin Multiple complications due to type 2 diabetes mellitus 921748083 E11.8 ada diet asa, met 500, atorva 20 Morbid obesity 314098391 E66.01 diet and exercise Chest pain 99728020 R07. 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 9 EKG in the office with no-specifi c T wave changes Continues to have off and on chest pain with shortness of breath Will send the patient via ambulance to [facility] for further evaluation Cardiac referral-p Still having occasional chest discomfort and feels short of breath on exertion from time to time, per patient Hypertensive disorder 38 530719 I10 BP 126/70 on 11/21/20 Stable-not on medication s BP 124/78 on 12/28/20 Osteoarthritis 895986826 M19.90 voltaren 1%, lidocaine, capsaicin Pain of sa croiliac joint 807456840 M53.3 cont rx Encouraged to apply heat to the affected area Morbid obesity 466605032 E66.01 diet and exercise Vertigo 064901917 R42 meclizine 25 Encouraged to continue meclizine as needed and avoid moving too fast Gasping for breath 50561 003 R06.09 Will obtain sleep study [id number] Cory Granados [facility] [address] [place] [address] 03/07/2021 09:26:34 03/07/2021 16:32:47 Vertigo 262858835 R42 meclizine 25 Encouraged to continue meclizine as needed and avoid moving too fast Gasping for breath 71593 003 R06.09 Will obtain sleep study-p Chest pain 69686633 R07. 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 2 diabetes mellitus 417419948 E11.8 ada diet asa, met 500, atorva 20 recheck-p Hypertensive disorder 38 681013 I10 BP 126/70 on 11/21/20 Stable-not on medication s BP 124/78 on 12/28/20 Osteoarthritis 580430135 M19.90 voltaren 1%, lidocaine, capsaicin Pain of sa croiliac joint 219346378 M53.3 cont rx Encouraged to apply heat to the affected area Morbid obesity 358024682 E66.01 diet and exercise Hypothyroidism 60315456 E03.9 levothyrox ine 100 mcg recheck-p Fibromyalgia 837936625 M 79.7 kenyon Migraine 22021290 G43.90 9 cali prn Gastroesop hageal reflux disease without esophagitis 964080110 K21.9 omep 20 Seasonal a llergic rhinitis 197243723 J30.2 montelukas t, loratadine d/c cetirizine Mixed anxi ety and depressive disorder 792908480 F41.8 no si/hi unsure of meds followed by psych Vitamin D deficiency 347 56494 E55.9 D3 Cobalamin deficiency 190 711519 E53.8 b12 Urinary incontinence 165 044368 R32 solifenaci n 10 [id number] Cory Granados, DO [facility] [address] [place] [address] 03/10/2021 09:41:06 03/10/2021 09:44:52 Urinary incontinence 263839525 R32 solifenaci n 10 Vertigo 647063863 R42 meclizine 25 Encouraged to continue meclizine as needed and avoid moving too fast Gasping for breath 91155 003 R06.09 Will obtain sleep study-> pulm-p Chest pain 51278976 R07. 9 EKG in the office with no-specifi c T wave changes Continues to have off and on chest pain with shortness of breath Will send the patient via ambulance to [facility] for further evaluation Cardiac referral-p Still having occasional chest discomfort and feels short of breath on exertion from time to time, per patient cardiology -p Multiple complications due to type 2 diabetes mellitus 115774697 E11.8 ada diet asa, met 500, atorva 20 recheck-p Osteoarthritis 669382920 M19.90 voltaren 1%, lidocaine, capsaicin Pain of sa croiliac joint 950560147 M53.3 Encouraged to apply heat to the affected area Morbid obesity 822376924 E66.01 diet and exercise Hypothyroidism 76251991 E03.9 levothyrox ine 100 mcg recheck-p Fibromyalgia 975084259 M 79.7 kenyon Migraine 88286272 G43.90 9 cali prn Gastroesop hageal reflux disease without esophagitis 002514389 K21.9 omep 20 Seasonal a llergic rhinitis 716659030 J30.2 montelukas t, loratadine d/c cetirizine Mixed anxi ety and depressive disorder 320871609 F41.8 no si/hi bup 150 and 300 total 450, esit 20 followed by psych Vitamin D deficiency 347 45180 E55.9 D3 Cobalamin deficiency 190 784401 E53.8 b12 Insomnia 709102903 G47.0 9 amitrip 25 Screening for osteoporosis 362754122 Z13.820 -p Dysuria 53940991 R30.9 u/reflux-p Chronic low back pain 27 3061131 M54.5 Map[employer] uses cane Fatigue 16520980 R53.83 labs/urine -p Bilateral knee pain 1187 239213 4441365 M25.561 ortho-p [id number] Cory Granados, [facility] [address] [place] [address] 05/02/2021 08:22:09 05/02/2021 09:33:00 Dysuria 07171670 R30.9 u/reflux- negmacrobi dresolved Urinary incontinence 165 503135 R32 solifenaci n 10-followe d by urology Vertigo 653081740 R42 meclizine 25 Encouraged to continue meclizine as needed and avoid moving too fast Gasping for breath 10052 003 R06.09 Will obtain sleep study-> pulm-p- pt contacted Chest pain 68528970 R07. 9 EKG in the office with no-specifi c T wave changes Continues to have off and on chest pain with shortness of breath Will send the patient via ambulance to [facility] for further evaluation Cardiac referral-p Still having occasional chest discomfort and feels short of breath on exertion from time to time, per patient cardiology - seen Multiple complications due to type 2 diabetes mellitus 784310636 E11.8 ada diet asa, met 500, atorva 48MAX0z 6.7 03/15/21 Osteoarthritis 862145884 M19.90 voltaren 1%, lidocaine, capsaicin Pain of sa croiliac joint 590196797 M53.3 Encouraged to apply heat to the affected area Morbid obesity 933333994 E66.01 diet and exercise Hypothyroidism 85816653 E03.9 levothyrox ine 100 mcgTSH 0.289 FT4 1.10 03/15/21 Fibromyalgia 060179159 M 79.7 kenyon Migraine 93026624 G43.90 9 cali prn Gastroesop hageal reflux disease without esophagitis 758529801 K21.9 omep 20 Seasonal a llergic rhinitis 633542400 J30.2 montelukas t, loratadine d/c cetirizine Mixed anxi ety and depressive disorder 441798590 F41.8 no si/hi bup 150 and 300 total 450, esit 20 followed by psych Vitamin D deficiency 347 18109 E55.9 D3D 32.80 03/15/21 Cobalamin deficiency 190 447700 E53.8 b12B12 >2000 03/15/21 Insomnia 030066474 G47.0 9 amitrip 25 Chronic low back pain 27 2533532 M54.5 Mapap uses cane Fatigue 99562109 R53.83 labs/urine - nml 03/15/21 Bilateral knee pain 1187 033050 8743340 M25.561 ortho-p Edema of l ower extremity 723195104 R60.0 DEBORAH stockings Changes in skin texture 227441899 R23.4 pt c/o spots to bottom of feetderm-p [id number] Cory Granados [address] [place] [facility] [place] [address] 05/31/2021 16:02:36 05/31/2021 16:15:34 Edema of lower extremity 962568915 R60.0 DEBORAH stockings- not received- pt to call L&C Changes in skin texture 847894777 R23.4 pt c/o spots to bottom of feetderm-p Urinary incontinence 165 210796 R32 solifenaci n 10-followe d by urology Vertigo 921101666 R42 meclizine 25 Encouraged to continue meclizine as needed and avoid moving too fast Gasping for breath 20775 003 R06.09 Will obtain sleep study-> pulm-p- pt contacted- pr tp study completed will call for fu-p Chest pain 95157074 R07. 9 EKG in the office with no-specifi c T wave changes Continues to have off and on chest pain with shortness of breath Will send the patient via ambulance to [facility] ER for further evaluation Cardiac referral-p Still having occasional chest discomfort and feels short of breath on exertion from time to time, per patient cardiology - seen Multiple complications due to type 2 diabetes mellitus 162200454 E11.8 ada diet asa, met 500, atorva 55LZG2h 6.7 03/15/21 Osteoarthritis 856759283 M19.90 voltaren 1%, lidocaine, capsaicin Pain of sa croiliac joint 188542860 M53.3 Encouraged to apply heat to the affected area Morbid obesity 982410416 E66.01 diet and exercise Hypothyroidism 96826723 E03.9 levothyrox ine 100 mcgTSH 0.289 FT4 1.10 03/15/21 Fibromyalgia 715549486 M 79.7 kenyon Migraine 70816991 G43.90 9 cali prn Gastroesop hageal reflux disease without esophagitis 572984022 K21.9 omep 20 Seasonal a llergic rhinitis 560595095 J30.2 montelukas t, loratadine d/c cetirizine Mixed anxi ety and depressive disorder 332409559 F41.8 no si/hi bup 150 and 300 total 450, esit 20 followed by psych Vitamin D deficiency 347 91016 E55.9 D3D 32.80 03/15/21 Cobalamin deficiency 190 094573 E53.8 b12B12 >2000 03/15/21 Insomnia 573565783 G47.0 9 amitrip 25 Chronic low back pain 27 8403946 M54.5 Mapap uses cane Fatigue 69391260 R53.83 labs/urine - nml 03/15/21impr manuel Bilateral knee pain 1187 541332 4643430 M25.561 ortho- MRI-p [id number] Cory Granados [facility] [address] [facility] [place] [address] 07/05/2021 14:59:57 07/05/2021 15:08:32 Bilateral knee pain 9545255694 0501678 M25.561 ortho- MRI-p Edema of l ower extremity 058781839 R60.0 DEBORAH stockings- not received- pt to call L&C- has not received Changes in skin texture 238407062 R23.4 pt c/o spots to bottom of feetderm 08/08/21-p Urinary incontinence 165 702460 R32 solifenaci n 10-followe d by urology Vertigo 334041459 R42 meclizine 25 Encouraged to continue meclizine as needed and avoid moving too fast Gasping for breath 27518 003 R06.09 Will obtain sleep study-> pulm-p- pt contacted- pr pt study completed will call for fu-pt seen 06/27/21 sleep studay ordered Chest pain 76664162 R07. 9 EKG in the office with no-specifi c T wave changes Continues to have off and on chest pain with shortness of breath Will send the patient via ambulance to [facility] for further evaluation Cardiac referral-p Still having occasional chest discomfort and feels short of breath on exertion from time to time, per patient cardiology - seen Multiple complications due to type 2 diabetes mellitus 292820127 E11.8 ada diet asa, met 500, atorva 04ICF9g 6.7 03/15/21 Osteoarthritis 573970067 M19.90 voltaren 1%, lidocaine, capsaicin Pain of sa croiliac joint 817411969 M53.3 Encouraged to apply heat to the affected area Morbid obesity 719190391 E66.01 diet and exercise Hypothyroidism 04815974 E03.9 levothyrox ine 100 mcgTSH 0.289 FT4 1.10 03/15/21 Fibromyalgia 567727571 M 79.7 kenyon Migraine 77597830 G43.90 9 cali prn Gastroesop hageal reflux disease without esophagitis 911176856 K21.9 omep 20 Seasonal a llergic rhinitis 479154651 J30.2 montelukas t, loratadine d/c cetirizine Mixed anxi ety and depressive disorder 547697816 F41.8 no si/hi bup 150 and 300 total 450, esit 20 followed by psych Vitamin D deficiency 347 23478 E55.9 D3D 32.80 03/15/21 Cobalamin deficiency 190 975104 E53.8 b12B12 >2000 03/15/21 Insomnia 435718261 G47.0 9 amitrip 25 Chronic low back pain 27 2128919 M54.5 Mapap uses cane Fatigue 64900153 R53.83 labs/urine - nml 03/15/21impr manuel [id number] DO JAMES [facility] [place] [address] [place] [address] 07/26/2021 14:13:37 07/26/2021 14:25:25 Gasping for breath 66740279 R06.09 Will obtain sleep study-> pulm-p- pt contacted- pr pt study completed will call for fu-pt seen 06/27/21 sleep study ordered-p Bilateral knee pain 1187 809373 5432736 M25.561 ortho- MRI- done pt declining PT/inj Edema of l ower extremity 156630492 R60.0 DEBORAH stockings- not received- pt to call L&C- has not received Changes in skin texture 323068144 R23.4 pt c/o spots to bottom of feetderm 08/08/21-p Urinary incontinence 165 610498 R32 solifenaci n 10-followe d by urology Vertigo 322746899 R42 meclizine 25 Encouraged to continue meclizine as needed and avoid moving too fast Chest pain 28303280 R07. 9 EKG in the office with no-specifi c T wave changes Continues to have off and on chest pain with shortness of breath Will send the patient via ambulance to [facility] ER for further evaluation Cardiac referral-p Still having occasional chest discomfort and feels short of breath on exertion from time to time, per patient cardiology - seen Multiple complications due to type 2 diabetes mellitus 611342460 E11.8 ada diet asa, met 500, atorva 07DLC4w 6.7 03/15/21 Osteoarthritis 335148051 M19.90 voltaren 1%, lidocaine, capsaicin Pain of sa croiliac joint 198480422 M53.3 Encouraged to apply heat to the affected area Morbid obesity 476942063 E66.01 diet and exercise Hypothyroidism 70780861 E03.9 levothyrox ine 100 mcgTSH 0.289 FT4 1.10 03/15/21 Fibromyalgia 397075893 M 79.7 kenyon Migraine 29870025 G43.90 9 cali prn Gastroesop hageal reflux disease without esophagitis 117837235 K21.9 omep 20 Seasonal a llergic rhinitis 517213514 J30.2 montelukas t, loratadine d/c cetirizine Mixed anxi ety and depressive disorder 074241577 F41.8 no si/hi bup 150 and 300 total 450, esit 20 followed by psych Vitamin D deficiency 347 13468 E55.9 D3D 32.80 03/15/21 Cobalamin deficiency 190 283120 E53.8 b12B12 >2000 03/15/21 Insomnia 248732786 G47.0 9 amitrip 25 Chronic low back pain 27 1578718 M54.5 Mapap uses cane Fatigue 92947365 R53.83 labs/urine - nml 03/15/21impr manuel Pain of left wrist 06033 45166 23466 M25.532 Seen in ER 07/22/21- has ortho info to book fu-p 42627 Cory Granados, [facility] [id number] [place] [address] 08/15/2021 14:52:15 08/15/2021 16:42:45 Screening for malignant neoplasm of colon 548906401 Z12.11 @[facility]- ? requested Adult heal th examination 566259134 Z00.01 cpe labs reviewed Screening mammography 24 249374 Z12.31 12/2020 nml Screening for osteoporosis 005263023 Z13.820 05/2021 nml Screening for malignant neoplasm of cervix 863406510 Z12.4 ??02/2021- done note-p Active or passive immunization 619441257 Z23 gets at [facility] Pain of left wrist 09950 14363 42577 M25.532 Seen in ER 07/22/21- has ortho info to book fu-p Gasping for breath 65167 003 R06.09 Will obtain sleep study-> pulm-p- pt contacted- pr pt study completed will call for fu-pt seen 06/27/21 sleep study ordered- done fu-p Bilateral knee pain 1187 242043 3658797 M25.561 ortho- MRI- done pt declining PT/inj Edema of l ower extremity 181251379 R60.0 DEBORAH stockings- not received- pt to call [facility]&C- has not received Changes in skin texture 556564997 R23.4 pt c/o spots to bottom of feetderm 08/08/21 seen Urinary incontinence 165 390849 R32 solifenaci n 10-followe d by urology Vertigo 482522562 R42 meclizine 25 Encouraged to continue meclizine as needed and avoid moving too fast Chest pain 05574952 R07. 9 EKG in the office with no-specifi c T wave changes Continues to have off and on chest pain with shortness of breath Will send the patient via ambulance to [facility] for further evaluation Cardiac referral-p Still having occasional chest discomfort and feels short of breath on exertion from time to time, per patient cardiology - seen Multiple complications due to type 2 diabetes mellitus 424333038 E11.8 ada diet asa, met 500, atorva 46PSJ0l 6.7 03/15/21HBA1 c 7.2 m/c LDL 97.8 08/10/21 increase met 100 bid Osteoarthritis 888271894 M19.90 voltaren 1%, lidocaine, capsaicin Pain of sa croiliac joint 457050456 M53.3 Encouraged to apply heat to the affected area Morbid obesity 204358667 E66.01 diet and exercise Hypothyroidism 23342924 E03.9 levothyrox ine 100 mcgTSH 0.289 FT4 1.10 03/15/21TSH 08/10/21 1.030 Fibromyalgia 420837964 M 79.7 kenyon increase to 300 bidHHA- receive [employer]ELOPER Migraine 19815183 G43.90 9 cali prn Gastroesop hageal reflux disease without esophagitis 655102980 K21.9 omep 20 Seasonal a llergic rhinitis 671102699 J30.2 montelukas t, loratadine d/c cetirizine Mixed anxi ety and depressive disorder 977075371 F41.8 no si/hi bup 150 and 300 total 450, esit 20 followed by psych Vitamin D deficiency 347 71082 E55.9 D3D 32.80 03/15/21D 34 08/10/21 Cobalamin deficiency 190 801047 E53.8 b12B12 >2000 03/15/21B12 >2000 08/10/21 Insomnia 730798478 G47.0 9 amitrip 25 Chronic low back pain 27 0176736 M54.59 Mapap uses cane Fatigue 73677565 R53.83 labs/urine - nml 03/15/21impr manuel Microscopic hematuria 19 5046924 R31.29 urology 10/13/20-pt race 08/10/21 Elevated blood-pressure reading without diagnosis of hypertension 163465366 R03.0 report s elevated BP- will keep log and fu 2 weeks 22251 Cory Granados, DO Main Office [address] [place] [address],[address] [address] 09/06/2021 11:43:32 09/06/2021 12:54:12 Pain of left wrist 8438529763 10405 M25.532 Seen in ER 07/22/21- has ortho info to book fu-p Bilateral knee pain 1187 041410 5402475 M25.561 ortho- MRI- done pt declining PT/inj Edema of l ower extremity 785090682 R60.0 DEBORAH stockings- not received- pt to call [facility]- has not received Urinary incontinence 165 060156 R32 d/c solifenaci n 10-followe d by urology Vertigo 681958695 R42 meclizine 25 Encouraged to continue meclizine as needed and avoid moving too fast Multiple complications due to type 2 diabetes mellitus 271043561 E11.8 ada diet asa, met 500, atorva 15VTS8y 6.7 03/15/21HBA1 c 7.2 m/c LDL 97.8 08/10/21 increase met 100 bid, FARXIGA 10 Osteoarthritis 461443340 M19.90 voltaren 1%, lidocaine, capsaicin Pain of sa croiliac joint 023043019 M53.3 Encouraged to apply heat to the affected area Morbid obesity 039464354 E66.01 diet and exercise Hypothyroidism 54095718 E03.9 levothyrox ine 100 mcgTSH 0.289 FT4 1.10 03/15/21TSH 08/10/21 1.030 Fibromyalgia 361740843 M 79.7 kenyon increase to 300 bidHHA- receive [employer]ELOPER Migraine 25070597 G43.90 9 cali prn Gastroesop hageal reflux disease without esophagitis 221745100 K21.9 omep 20 Seasonal a llergic rhinitis 546791122 J30.2 montelukas t, loratadine d/c cetirizine Mixed anxi ety and depressive disorder 079391075 F41.8 no si/hi bup 150 and 300 total 450, esit 20 followed by psych Vitamin D deficiency 347 82645 E55.9 D3D 32.80 03/15/21D 34 08/10/21 Cobalamin deficiency 190 322486 E53.8 b12B12 >2000 03/15/21B12 >199908/10/21 Insomnia 837518722 G47.0 9 amitrip 25 Chronic low back pain 27 0996635 M54.59 Mapap uses cane Fatigue 80207396 R53.83 labs/urine - nml 03/15/21impr manuel Body mass index 40+ - severely obese 712121135 Z68.41 Visual impairment 900258 003 H54.7 69339 Cory Granados, DO Main Office [address] [place] [address],[address] [address] 11/17/2021 10:59:33 11/17/2021 11:50:37 Bilateral knee pain 8524154797 8657818 M25.561 ortho- MRI- done pt declining PT/inj Pain of left wrist 99603 50403 51626 M25.532 Seen in ER 07/22/21- has ortho info to book fu-p Edema of l ower extremity 932160926 R60.0 DEBORAH stockings- not received- pt to call [facility]- has not received Urinary incontinence 165 745401 R32 d/c solifenaci n 10-followe d by urology Vertigo 417545351 R42 meclizine 25 Encouraged to continue meclizine as needed and avoid moving too fast Multiple complications due to type 2 diabetes mellitus 128493857 E11.8 ada diet asa, met 500, atorva 31CHT0x 6.7 03/15/21HBA1 c 7.2 m/c LDL 97.8 08/10/21 increase met 100 bid, FARXIGA 10 Osteoarthritis 104387578 M19.90 voltaren 1%, lidocaine, capsaicin Pain of sa croiliac joint 015892821 M53.3 Encouraged to apply heat to the affected area Morbid obesity 155957908 E66.01 diet and exercise Hypothyroidism 06252345 E03.9 levothyrox ine 100 mcgTSH 0.289 FT4 1.10 03/15/21TSH 08/10/21 1.030 Fibromyalgia 849169545 M 79.7 kenyon increase to 300 bidHHA- receive [employer]OPER Migraine 36925372 G43.90 9 cali prn Gastroesop hageal reflux disease without esophagitis 023386034 K21.9 omep 20 Seasonal a llergic rhinitis 833665124 J30.2 montelukas t, loratadine d/c cetirizine Mixed anxi ety and depressive disorder 243104409 F41.8 no si/hi bup 150 and 300 total 450, esit 20 followed by psych Vitamin D deficiency 347 10243 E55.9 D3D 32.80 03/15/21D 34 08/10/21 Cobalamin deficiency 190 326103 E53.8 b12B12 >199903/15/21B12 >199908/10/21 Insomnia 761806856 G47.0 9 amitrip 25 Chronic low back pain 27 4846156 M54.59 Mapap uses cane Fatigue 38617874 R53.83 labs/urine - nml 03/15/21impr manuel Body mass index 40+ - severely obese 992461296 Z68.41 diet and exercise Visual impairment 628070 003 H54.7 Dyspnea on exertion 6084 5006 R06.09 Obstructiv e sleep apnea syndrome 74261190 G47.33 off cpap Screening for malignant neoplasm of colon 330734516 Z12.11 @[facility]- ? requested [facility] for malignant neoplasm of breast 7796396775 93547 Z91.89 50095 Cory Granados, Main Office [address] [place] [address] 12/06/2021 09:10:31 12/06/2021 10:59:29 Bilateral knee pain 3874191055 5969773 M25.561 ortho- MRI- done pt declining PT/inj Pain of left wrist 26264 84958 52567 M25.532 Seen in ER 07/22/21- has ortho info to book fu-p Edema of l ower extremity 071506590 R60.0 DEBORAH stockings- not received- pt to call [facility]- has not received Urinary incontinence 165 050307 R32 d/c solifenaci n 10-followe d by urology Vertigo 688287353 R42 meclizine 25 Encouraged to continue meclizine as needed and avoid moving too fast Multiple complications due to type 2 diabetes mellitus 638234751 E11.8 ada diet asa, met 500, atorva 12LIR8z 6.7 03/15/21HBA1 c 7.2 m/c LDL 97.8 08/10/21 increase met 100 bid, FARXIGA 33JEF3d 8.1, m/c 5 11/16/21 Osteoarthritis 569745031 M19.90 voltaren 1%, lidocaine, capsaicin Pain of sa croiliac joint 591933211 M53.3 Encouraged to apply heat to the affected area Morbid obesity 344921780 E66.01 diet and exercise Hypothyroidism 57074129 E03.9 levothyrox ine 100 mcgTSH 0.289 FT4 1.10 03/15/21TSH 08/10/21 1.030 Fibromyalgia 754278126 M 79.7 kenyon increase to 300 bidHHA- receive [employer]ELOPER Migraine 08440592 G43.90 9 cali prn Gastroesop hageal reflux disease without esophagitis 075558612 K21.9 omep 20 Seasonal a llergic rhinitis 180893138 J30.2 montelukas t, loratadine d/c cetirizine Mixed anxi ety and depressive disorder 809907772 F41.8 no si/hi bup 150 and 300 total 450, esit 20 followed by psych Vitamin D deficiency 347 93658 E55.9 D3D 32.80 03/15/21D 34 08/10/21 Cobalamin deficiency 190 424689 E53.8 b12B12 >199903/15/21B12 >199908/10/21 Insomnia 377615655 G47.0 9 amitrip 25 Chronic low back pain 27 9287898 M54.59 Mapap uses cane Fatigue 55438675 R53.83 labs/urine - nml 03/15/21impr manuel Body mass index 40+ - severely obese 396077163 Z68.41 diet and exercise Visual impairment 186989 003 H54.7 Obstructiv e sleep apnea syndrome 88762646 G47.33 on cpap [facility] for malignant neoplasm of breast 3813078530 94373 Z91.89 Adjustment disorder with mixed emotional features 81952690 F43.23 Pschych f/u 34409 Cory Granados, DO Main Office [address] [place] [address],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 2 diabetes mellitus 383343157 E11.8 ada diet asa, met 500, atorva 41HVI9z 6.7 03/15/21HBA1 c 7.2 m/c LDL 97.8 08/10/21 increase met 100 bid, FARXIGA 35AAW9n 8.1, m/c 5 11/16/21 Osteoarthritis 164190756 M19.90 voltaren 1%, lidocaine, capsaicin Pain of sa croiliac joint 821812837 M53.3 Encouraged to apply heat to the affected area Morbid obesity 103031179 E66.01 diet and exercise Hypothyroidism 38499596 E03.9 levothyrox ine 100 mcgTSH 0.289 FT4 1.10 03/15/21TSH 08/10/21 1.030 Fibromyalgia 978262738 M 79.7 kenyon increase to 300 bidHHA- receive [employer]ELOPER Migraine 49213184 G43.90 9 cali prn Gastroesop hageal reflux disease without esophagitis 077446940 K21.9 omep 20 Seasonal a llergic rhinitis 757566721 J30.2 montelukas t, loratadine d/c cetirizine Mixed anxi ety and depressive disorder 480652935 F41.8 no si/hi bup 150 and 300 total 450, esit 20 followed by psych Vitamin D deficiency 347 92362 E55.9 D3D 32.80 03/15/21D 34 08/10/21 Cobalamin deficiency 190 837526 E53.8 b12B12 >2000 03/15/21B12 >2000 08/10/21 Insomnia 476644734 G47.0 9 amitrip 25 Chronic low back pain 27 2770929 M54.59 Mapap uses cane Fatigue 70046667 R53.83 labs/urine - nml 03/15/21impr manuel Body mass index 40+ - severely obese 985952973 Z68.41 diet and exercise Visual impairment 691450 003 H54.7 Obstructiv e sleep apnea syndrome 31999869 G47.33 on cpap Adjustment disorder with mixed emotional features 76944264 F43.23 Pschych f/u Acute atop ic conjunctivitis 31024472 H10.10 34754 Cory Granados, DO Main Office [address] 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 2 diabetes mellitus 277044980 E11.8 ada diet asa, met 500, atorva 21LTX4k 6.7 03/15/21HBA1 c 7.2 m/c LDL 97.8 08/10/21 increase met 100 bid, FARXIGA 11CTE0k 8.1, m/c 5 11/16/21, 7 01/17/22 Osteoarthritis 262282599 M19.90 voltaren 1%, lidocaine, capsaicin Pain of sa croiliac joint 540169697 M53.3 Encouraged to apply heat to the affected area Morbid obesity 760883234 E66.01 diet and exercise Hypothyroidism 36122874 E03.9 levothyrox ine 100 mcg-->112T SH 0.289 FT4 1.10 03/15/21TSH 08/10/21 1.030, 6.58/0.9 01/10/22 Fibromyalgia 903629889 M 79.7 kenyon increase to 300 bidHHA- receive [employer]OPER Migraine 45078733 G43.90 9 cali prn Gastroesop hageal reflux disease without esophagitis 554602518 K21.9 omep 20 Seasonal a llergic rhinitis 533250494 J30.2 montelukas t, loratadine d/c cetirizine Mixed anxi ety and depressive disorder 639827629 F41.8 no si/hi bup 150 and 300 total 450, esit 20 followed by psych Vitamin D deficiency 347 04238 E55.9 D3D 32.80 03/15/21D 34 08/10/21 Insomnia 652224771 G47.0 9 amitrip 25 Chronic low back pain 27 5481691 M54.59 Mapap uses cane Fatigue 13790234 R53.83 labs/urine - nml 03/15/21impr manuel Body mass index 40+ - severely obese 257714135 Z68.41 diet and exercise Visual impairment 840122 003 H54.7 Obstructiv e sleep apnea syndrome 22746406 G47.33 on cpap Adjustment disorder with mixed emotional features 84210647 F43.23 Pschych f/u Acute atop ic conjunctivitis 83807878 H10.10 Abdominal pain 90956924 R10.9 Screening for malignant neoplasm of colon 505074487 Z12.11 @[facility]- ? requested 55041 Cory Granados, Main Office [address] [place] [address] 04/04/2022 11:56:40 04/04/2022 13:19:17 Seasonal allergic rhinitis 878458507 J30.2 montelukas t, loratadine d/c cetirizine Urinary incontinence 165 312236 R32 d/c solifenaci n 10-followe d by urology Vertigo 045600955 R42 meclizine 25 Encouraged to continue meclizine as needed and avoid moving too fast Bilateral knee pain 1187 098566 2253081 M25.561 ortho- MRI- done pt declining PT/inj Pain of left wrist 12788 60587 80775 M25.532 Seen in ER 07/22/21- has ortho info to book fu-p Edema of l ower extremity 683441531 R60.0 DEBORAH stockings- not received- pt to call [facility]- has not received Multiple complications due to type 2 diabetes mellitus 226989552 E11.8 ada diet asa, met 500, atorva 99YJP7g 6.7 03/15/21HBA1 c 7.2 m/c LDL 97.8 08/10/21 increase met 100 bid, FARXIGA 12GXL9p 8.1, m/c 5 11/16/21, 7 01/17/22 Osteoarthritis 497331846 M19.90 voltaren 1%, lidocaine, capsaicin Pain of sa croiliac joint 947607156 M53.3 Encouraged to apply heat to the affected area Morbid obesity 402977112 E66.01 diet and exercise Hypothyroidism 18594228 E03.9 levothyrox ine 100 mcg-->112T SH 0.289 FT4 1.10 03/15/21TSH 08/10/21 1.030, 6.58/0.9 01/10/22 Fibromyalgia 507810793 M 79.7 kenyon increase to 300 bidHHA- receive [employer]ELOPER Migraine 67465321 G43.90 9 cali prn Gastroesop hageal reflux disease without esophagitis 889305104 K21.9 omep 20 Mixed anxi ety and depressive disorder 052020269 F41.8 no si/hi bup 150 and 300 total 450, esit 20 followed by psych Vitamin D deficiency 347 92845 E55.9 D3D 32.80 03/15/21D 34 08/10/21 Insomnia 391930067 G47.0 9 amitrip 25 Chronic low back pain 27 5816148 M54.59 Mapap uses cane Fatigue 82378080 R53.83 labs/urine - nml 03/15/21impr manuel Body mass index 40+ - severely obese 699549502 Z68.41 diet and exercise Visual impairment 707506 003 H54.7 Obstructiv e sleep apnea syndrome 98420903 G47.33 on cpap Adjustment disorder with mixed emotional features 19551915 F43.23 Pschych f/u Acute atop ic conjunctivitis 81223388 H10.10 Abdominal pain 03603254 R10.9 65346 Cory Granados, DO Main Office [address] [place] [address],[facility] [address] [place] [address] 05/02/2022 11:45:59 05/02/2022 13:33:22 Bilateral knee pain 6727293271 5962740 M25.561 ortho- MRI- done pt declining PT/inj Seasonal a llergic rhinitis 673146991 J30.2 montelukas t, loratadine d/c cetirizine Urinary incontinence 165 534323 R32 d/c solifenaci n 10-followe d by urology Vertigo 937688609 R42 meclizine 25 Encouraged to continue meclizine as needed and avoid moving too fast Pain of left wrist 07874 91452 22926 M25.532 Seen in ER 07/22/21- has ortho info to book fu-p Edema of l ower extremity 046002212 R60.0 DEBORAH stockings- not received- pt to call [facility]- has not received Multiple complications due to type 2 diabetes mellitus 325577208 E11.8 ada diet asa, met 500, atorva 15RDW4a 6.7 03/15/21HBA1 c 7.2 m/c LDL 97.8 08/10/21 increase met 100 bid, FARXIGA 40TOR4r 8.1, m/c 5 11/16/21, 7 01/17/22 Osteoarthritis 876799213 M19.90 voltaren 1%, lidocaine, capsaicin Pain of sa croiliac joint 686587186 M53.3 Encouraged to apply heat to the affected area Morbid obesity 653692679 E66.01 diet and exercise Hypothyroidism 33316745 E03.9 levothyrox ine 100 mcg-->112T SH 0.289 FT4 1.10 03/15/21TSH 08/10/21 1.030, 6.58/0.9 01/10/22 Fibromyalgia 867532297 M 79.7 kenyon increase to 300 bidHHA- receive [employer]ELOPER Migraine 69594089 G43.90 9 cali prn Gastroesop hageal reflux disease without esophagitis 594432326 K21.9 omep 20 Mixed anxi ety and depressive disorder 162757770 F41.8 no si/hi bup 150 and 300 total 450, esit 20 followed by psych Vitamin D deficiency 347 04008 E55.9 D3D 32.80 03/15/21D 34 08/10/21 Insomnia 347901964 G47.0 9 amitrip 25 Fatigue 39803185 R53.83 labs/urine - nml 03/15/21impr manuel Body mass index 40+ - severely obese 093819445 Z68.41 diet and exercise Visual impairment 264668 003 H54.7 Obstructiv e sleep apnea syndrome 73298394 G47.33 on cpap Adjustment disorder with mixed emotional features 88470365 F43.23 Pschych f/u Acute atop ic conjunctivitis 30856201 H10.10 Abdominal pain 85784747 R10.9 Lumbago with sciatica 20 0567463 M54.40 ibuprofen 600mg 76702 Cory Granados, DO Main Office [address] [facility] [address] [place] [address] 06/13/2022 12:35:29 06/13/2022 14:09:40 Urinary incontinence 654625122 R32 d/c solifenaci n 10-followe d by urology Bilateral knee pain 1187 580777 7370263 M25.561 ortho- MRI- done pt declining PT/inj Seasonal a llergic rhinitis 980905835 J30.2 montelukas t, loratadine d/c cetirizine Vertigo 246370437 R42 meclizine 25 Encouraged to continue meclizine as needed and avoid moving too fast Pain of left wrist 86346 43159 53836 M25.532 Seen in ER 07/22/21- has ortho info to book fu-p Edema of l ower extremity 986146229 R60.0 DEBORAH stockings- not received- pt to call [facility]- has not received Multiple complications due to type 2 diabetes mellitus 070562199 E11.8 ada diet asa, met 500, atorva 94YZX8w 6.7 03/15/21HBA1 c 7.2 m/c LDL 97.8 08/10/21 increase met 100 bid, FARXIGA 64JZB4d 8.1, m/c 5 11/16/21, 7 01/17/22 Osteoarthritis 851186157 M19.90 voltaren 1%, lidocaine, capsaicin Pain of sa croiliac joint 862516706 M53.3 Encouraged to apply heat to the affected area Morbid obesity 145295237 E66.01 diet and exercise Hypothyroidism 25024615 E03.9 levothyrox ine 100 mcg-->112- ->125TSH 0.289 FT4 1.10 03/15/21TSH 08/10/21 1.030, 6.58/0.9 01/10/22, 6/1 05/02/22 Fibromyalgia 096396334 M 79.7 kenyon increase to 300 bidHHA- receive [employer]ELOPER Migraine 10930314 G43.90 9 cali prn Gastroesop hageal reflux disease without esophagitis 494179792 K21.9 omep 20 Mixed anxi ety and depressive disorder 413991820 F41.8 no si/hi bup 150 and 300 total 450, esit 20 followed by psych Insomnia 650227439 G47.0 9 amitrip 25 Fatigue 06639336 R53.83 labs/urine - nml 03/15/21impr manuel Body mass index 40+ - severely obese 876554205 Z68.41 diet and exercise Visual impairment 074534 003 H54.7 Obstructiv e sleep apnea syndrome 54958972 G47.33 on cpap Adjustment disorder with mixed emotional features 48856031 F43.23 Pschych f/u Abdominal pain 16149584 R10.9 Lumbago with sciatica 20 4602916 M54.40 ibuprofen 600mg 20777 Cory Granados, DO Main Office [address] [place] [address] 07/25/2022 12:21:49 07/25/2022 14:10:58 Hypothyroidism 14804194 E03.9 levothyrox ine 100 mcg-->112- ->125-->13 7TSH 0.289 FT4 1.10 03/15/21TSH 08/10/21 1.030, 6.58/0.9 01/10/22, 6/1 05/02/22 Urinary incontinence 165 668982 R32 d/c solifenaci n 10-followe d by urology Bilateral knee pain 1187 150242 0097722 M25.561 ortho- MRI- done pt declining PT/inj Seasonal a llergic rhinitis 704518859 J30.2 montelukas t, loratadine d/c cetirizine Vertigo 915382408 R42 meclizine 25 Encouraged to continue meclizine as needed and avoid moving too fast Pain of left wrist 53215 29867 56516 M25.532 Seen in ER 07/22/21- has ortho info to book fu-p Edema of l ower extremity 167372520 R60.0 DEBORAH stockings- not received- pt to call L&[facility]- has not received Multiple complications due to type 2 diabetes mellitus 534605531 E11.8 ada diet asa, met 500, atorva 82ZYQ5r 6.7 03/15/21HBA1 c 7.2 m/c LDL 97.8 08/10/21 increase met 100 bid, FARXIGA 25QAP1w 8.1, m/c 5 11/16/21, 7 01/17/22 Osteoarthritis 692155393 M19.90 voltaren 1%, lidocaine, capsaicin Pain of sa croiliac joint 837468794 M53.3 Encouraged to apply heat to the affected area Morbid obesity 240123959 E66.01 diet and exercise Fibromyalgia 779886093 M 79.7 kenyon increase to 300 bidHHA- receive [employer]EL[employer] Migraine 44673841 G43.90 9 cali prn Gastroesop hageal reflux disease without esophagitis 308632284 K21.9 omep 20 Mixed anxi ety and depressive disorder 424472269 F41.8 no si/hi bup 150 and 300 total 450, esit 20 followed by psych Insomnia 642339961 G47.0 9 amitrip 25 Fatigue 58741390 R53.83 labs/urine - nml 03/15/21impr manuel Body mass index 40+ - severely obese 439973741 Z68.41 diet and exercise Visual impairment 538280 003 H54.7 Obstructiv e sleep apnea syndrome 15800766 G47.33 on cpap Adjustment disorder with mixed emotional features 74721728 F43.23 Pschych f/u Abdominal pain 36945533 R10.9 Lumbago with sciatica 20 3117334 M54.40 ibuprofen 600mg Congestive heart failure 80301244 I50.9 Screening for malignant neoplasm of colon 047008333 Z12.11 @[facility]- ? requested Screening for osteoporosis 312133747 Z13.820 05/2021 nml Adult heal th examination 900594053 Z00.01 cpe labs Active or passive immunization 239711543 Z23 gets at [facility] Screening mammography 24 138145 Z12.31 12/2020 nml Tobacco us e cessation education [id number] Z71.6 Depression screening 171 463846 Z13.31 [id number] Cory Granados, DO Main Office [address] [place] [address] [id number] 09/05/2022 12:47:16 09/05/2022 13:40:28 Congestive heart failure [id number] I50.9 Vertigo [id number] R42 meclizine 25 Encouraged to continue meclizine as needed and avoid moving too fast Hypothyroidism 95567700 E03.9 levothyrox ine 100 mcg-->112- ->125-->13 7TSH 0.289 FT4 1.10 03/15/21TSH 08/10/21 1.030, 6.58/0.9 01/10/22, 6/1 05/02/22, nml 07/25/22 Urinary incontinence 165 790421 R32 d/c solifenaci n 10-followe d by urology Bilateral knee pain 1187 679722 3932291 M25.561 ortho- MRI- done pt declining PT/inj Pain of left wrist 11176 30435 28061 M25.532 Seen in ER 07/22/21- has ortho info to book fu-p Edema of l ower extremity 634935149 R60.0 DEBORAH stockings- not received- pt to call L&C- has not received Multiple complications due to type 2 diabetes mellitus 482288782 E11.8 ada diet asa, met 500, atorva 45PPY1o 6.7 03/15/21HBA1 c 7.2 m/c LDL 97.8 08/10/21 increase met 100 bid, FARXIGA 77YJP0t 8.1, m/c 5 11/16/21, 7 01/17/22, 6.7, LDL 76 07/15/22 Osteoarthritis 224589554 M19.90 voltaren 1%, lidocaine, capsaicin Pain of sa croiliac joint 497675106 M53.3 Encouraged to apply heat to the affected area Morbid obesity 906088445 E66.01 diet and exercise Fibromyalgia 712518547 M 79.7 kenyon increase to 300 bidHHA- receive [employer] Migraine 30497402 G43.90 9 cali prn Gastroesop hageal reflux disease without esophagitis 710096811 K21.9 omep 20 Mixed anxi ety and depressive disorder 476340165 F41.8 no si/hi bup 150 and 300 total 450, esit 20 followed by psych Insomnia 415525165 G47.0 9 amitrip 25 Fatigue 81919772 R53.83 labs/urine - nml 03/15/21impr manuel Body mass index 40+ - severely obese 105174238 Z68.41 diet and exercise Visual impairment 411073 003 H54.7 Obstructiv e sleep apnea syndrome 35750516 G47.33 on cpap Adjustment disorder with mixed emotional features 07386763 F43.23 Pschych f/u Abdominal pain 08487322 R10.9 Lumbago with sciatica 20 0649018 M54.40 ibuprofen 600mg Screening for malignant neoplasm of colon 501206461 Z12.11 p Screening mammography 24 556832 Z12.31 12/2020 nml Tobacco us e cessation education 705373988 Z71.6 Depression screening 171 994426 Z13.31 Osteoporosis 25280719 M8 1.0 Screening for cardiovascular system disease 370826104 Z13.6 Changes in skin texture 109584934 R23.4 pt c/o spots to bottom of feetderm 08/08/21 seen Vitamin D deficiency 347 01441 E55.9 D3D 32.80 03/15/21D 34 08/10/21 Cobalamin deficiency 190 234523 E53.8 b12B12 >199903/15/21B12 >199908/10/21 Chronic low back pain 27 4680406 M54.59 Mapap uses cane Adult heal th examination 508435222 Z00.01 normalcpe labs reviewed Increased liver function 34078928 R94.5 ALT 32 07/15/22 [id number] Cory Granados, DO Main Office [address] [place] [id number] 3 11/21/2022 11:53:12 11/21/2022 13:45:12 Congestive heart failure 29512946 I50.9 Vertigo 406602211 R42 meclizine 25 Encouraged to continue meclizine as needed and avoid moving too fast Hypothyroidism 42622679 E03.9 levothyrox ine 100 mcg-->112- ->125-->13 7TSH 0.289 FT4 1.10 03/15/21TSH 08/10/21 1.030, 6.58/0.9 01/10/22, 6/1 05/02/22, nml 07/25/22 Urinary incontinence 165 323376 R32 d/c solifenaci n 10-followe d by urology Bilateral knee pain 1187 300975 0218266 M25.561 ortho- MRI- done pt declining PT/inj Pain of left wrist 29513 05477 60820 M25.532 Seen in ER 07/22/21- has ortho info to book fu-p Edema of l ower extremity 530821111 R60.0 DEBORAH stockings- not received- pt to call L&C- has not received Multiple complications due to type 2 diabetes mellitus 610552935 E11.8 ada diet asa, met 500, atorva 25NKW3v 6.7 03/15/21HBA1 c 7.2 m/c LDL 97.8 08/10/21 increase met 100 bid, FARXIGA 90JWW9l 8.1, m/c 5 11/16/21, 7 01/17/22, 6.7, LDL 76 07/15/22 Osteoarthritis 920714261 M19.90 voltaren 1%, lidocaine, capsaicin Pain of sa croiliac joint 633604971 M53.3 Encouraged to apply heat to the affected area Morbid obesity 817383420 E66.01 diet and exercise Fibromyalgia 744533106 M 79.7 kenyon increase to 300 bidHHA- receive [employer] Migraine 52868935 G43.90 9 cali prn Gastroesop hageal reflux disease without esophagitis 895545583 K21.9 omep 20 Mixed anxi ety and depressive disorder 315835940 F41.8 no si/hi bup 150 and 300 total 450, esit 20 followed by psych Insomnia 169327870 G47.0 9 amitrip 25 Fatigue 23136630 R53.83 labs/urine - nml 03/15/21impr manuel Body mass index 40+ - severely obese 011356773 Z68.41 diet and exercise Visual impairment 179168 003 H54.7 Obstructiv e sleep apnea syndrome 85490666 G47.33 on cpap Adjustment disorder with mixed emotional features 95236749 F43.23 Pschych f/u Lumbago with sciatica 20 5270784 M54.40 ibuprofen 600mg Vitamin D deficiency 347 25241 E55.9 D3D 32.80 03/15/21D 34 08/10/21 Cobalamin deficiency 190 389421 E53.8 b12B12 >2000 03/15/21B12 >199908/10/21 Chronic low back pain 27 6618234 M54.59 Mapap uses cane Increased liver function 63367762 R94.5 ALT 32 07/15/22 Hypercholesterolemia 136 20924 E78.2 LDL 93/TG 170 07/29/20, LDL 76 07/25/22 Hypertensive disorder 38 828917 I10 BP 126/70 on 11/21/20 Stable-not on medication s BP 124/78 on 12/28/20 Health Concerns Section Related Observation LastModified by Organization Detai ls LastModified Time None Recorded Concern Status LastModified by Organization Details LastModified Time None Recorded Advance Directives Directive N: Payers Insurance Date Sequence Insurance Name Policy Number Policy Shane Covered Member ID Shane Member ID Guarantor Name 11/21/2022 1 [facility] - DOS PRIOR TO 2023 - DUAL ELIGIBLE (MEDICARE REPLACEMENT/ADV ANTAGE - HMO) Karen Rivero [id number] Karen Rivero Notes Date Note Type Note Provider Name and Address Organization Details Recorded Time 022 text/ht ml 56yo F, here today for follow-up visit vit d def, migraine, Knee OA and cobalamin def. C/o anxiety and palpitations, no Si/Hi, lipoma w/pain, weight gain, meds review and labs results. Cory Granados DO [address] [facility],[address], [place], [address], [employer], [employer] 05/02/2022 13:32:33 text/ht ml 56yo F, here today for a follow up visit on vertigo, osteoarthritis, migraine and vit d def. C/o R hip and B knee pain despite meds, meds review and lab results. Weight gain. Cory Granados DO [address] [facility],[address], [place], [address], [employer] 06/13/2022 14:13:05 022 text/ht ml DiabetesReported bypatient.Control:usually well controlled; improved since last visit; normal range of home blood sugars (in the low 100s) Compliance:compliant with medications; compliant with follow-up visits; compliant with diet; compliant with home glucose monitoring Self Care:monitoring glucose ; seeing eye doctor regularly; checking feet regularly Associated Symptoms:no weight gain; no weight loss; no dizziness; no sweats; no headaches; no confusion; no increased thirst; no increased appetite; no increased urination; no blurred vision; no numbness of feet; no calluses on feet; no fatigue; no blurred vision; no paresthesiasHypothyroidReported bypatient.Associated Symptoms:no weakness; no lightheadedness; no fatigue; no cold intolerance; no constipation; no weight gain; no involuntary weight loss; normal mood; no menstrual irregularity; no pain; no dry/coarse skin; no edema; no deepening of the voice; no hoarseness; no goiter; no mass detected; no chest pain; no palpitations Treatment:taking medication as directed 56 yo F, here today for a follow-up hypothyroidism, UI, bl knee pain and DM2. C/o LBP x afew weeks, achy 03/20, meds review. Also c/o SOB x 1 week, meds review, weight gain. Labs update. Cory Granados DO [address] [facility],[address], [place], [address], [employer], [employer] 07/25/2022 14:00:39 022 text/ht ml 56yo F, here today for Medicare Annual Wellness, meds review and labs results. Vacc. update.Mammo:33-00-3259CT:06-01-20 21Colon: @[facility] - does not remember when.Pap: 02/2021 Labs:07-25-2022 vaccines-in chart Non smoker HCP: Roosevelt Acharya, roosevelt, Cory Granados DO [address] [facility] [address], [place], [address], [employer] 09/05/2022 13:37:45 023 text/ht ml 56yo F, here today for f/u on hypothyroidism, urinary incontinence, bilateral knee pain, and vertigo-any c/o x this visit. Cory Granados DO [address], [place], [address], [employer] 11/21/2022 13:45:21 OBGyn Episode No OBEpisode recorded.
--- OUTSIDE RECORDS SUMMARY | 2025-05-20 12:08 | XMS_ITS | Clinical Summary ---
Author Organization [facility] Address [address] [place] [address] Care Team Providers Care Physical Therapist Center Manager Name Role Phone Terese Roth PA-C Primary Care Provider [phone] Source Comments PLEASE NOTE, if this patient is a minor, it may be UNLAWFUL to discuss sensitive information that is contained in these records (such as FAMILY PLANNING, MENTAL HEALTH or SUBSTANCE ABUSE) with the minor patient's parent or other person without the patient's specific authorization.[facility] Allergies No known active allergies Medications lidocaine (LIDODERM) 5 % patchIndications: Chronic right-sided low back pain with right-sided sciatica Place 1 Patch onto the skin every 12 (twelve) hours 15 Patch 2 10/07/20 19 Active azelastine (ASTELIN) 137 mcg (0.1 %) nasal sprayIndications: Seasonal allergies Place 1 Monson into the nostril(s) 2 (two) times daily 30 mL 12/11/19 23 Active compr.stocking,kn ee,long,largeIndi cations:Leg swelling Compression stocking knee, high long 20-30. Lifetime use. 1 Each 02/27/20 23 Active capsaicin 0.025 % cream capsaicin 0.025 % topical cream Active diphth,pertus,amaris ll,,tetanus (BOOSTRIX TDAP) 2.5-8-5 Lf-mcg-Lf/0.5mL syrg Boostrix Tdap 2.5 Lf unit-8 mcg-5 Lf/0.5 mL intramuscular syringe Active flu vacc qs , 6 mos up, (FLUZONE QUAD ) 60 mcg (15 mcg x 4)/0.5 mL susp Fluzone Quad 60 mcg (15 mcg x 4)/0.5 mL intramuscular susp. Active flu vac [id number] 36mos up,PF, (AFLURIA QD 2019-,3YR UP,,PF,) 60 mcg (15 mcg x 4)/0.5 mL syrg Afluria Qd (36 mos up)(PF)60 mcg (15 mcg x4)/0.5 mL IM syringe Active lidocaine-priloca ine (EMLA) 2.5-2.5 % cream APPLY TO AFFECTED AREA TWICE A DAY DIRECTED 01/15/20 23 Active pneumococcal 23-donna ps vaccine (PNEUMOVAX-23) 25 mcg/0.5 mL vaccine Pneumovax-23 25 mcg/0.5 mL injection syringe Active solifenacin (VESICARE) 10 mg tablet 03/12/20 23 Active varicella-zoster recombinant adjuvanted (SHINGRIX, PF,) 50 mcg/0.5 mL susr Shingrix (PF) 50 mcg/0.5 mL intramuscular suspension, kit Active triamcinolone (KENALOG) 0.025 % cream triamcinolone acetonide 0.025 % topical cream Active clotrimazole-beta methasone (LOTRISONE) 1-0.05 % lotion clotrimazole-bet amethasone 1 %-0.05 % lotion Active escitalopram (LEXAPRO) 20 mg tablet Take 1 Tablet by mouth once daily 90 Tablet 1 05/17/20 23 Active SUMAtriptan succinate (IMITREX) 100 mg tablet sumatriptan 100 mg tablet Take 1 tablet as needed for migraine. May repeat once. Do not exceed 200mg in 24 hours 30 Tablet 05/17/20 23 Active diclofenac sodium (VOLTAREN) 1 % gelIndications:Bi lateral hip pain Apply 2 g topically 2 (two) times daily 150 g 1 05/17/20 23 Active simethicone (GAS-X ULTRA) 180 mg capsuleIndication s:Gastroesophagea l reflux disease without esophagitis Take 1 Capsule by mouth every 6 (six) hours as needed for flatulence 90 Capsule 1 05/17/20 23 Active blood pressure test kit-mediumIndicat ions:Essential hypertension 1 BLOOD PRESSURE KIT DX: I10 Measure BP once daily in sitting position 1 Kit 11/20/19 24 Active blood-glucose meter monitoring kitIndications:Ty pe 2 diabetes mellitus without complication, without long-term current use of insulin ([facility]) daily. Freestyle glucose monitor to check sugar daily. 1 Each 12/02/19 [address] tabletIndications :Type 2 diabetes mellitus without complication, without long-term current use of insulin ([facility]),Essentia l hypertension Take 1 Tablet by mouth once daily 90 Tablet 3 12/02/19 24 Active ARTIFICIAL TEARS,PVALCH-POVI D, 0.5-0.6 % dropIndications:S easonal allergies ONE DROP IN EACH EYE TWICE A DAY DIRECTED 15 mL 02/26/20 24 Active omeprazole (PRILOSEC) [address] capsuleIndication s:Gastroesophagea l reflux disease without esophagitis TAKE ONE CAPSULE BY MOUTH DAILY DIRECTED 30 Capsule 5 05/25/20 24 Active busPIRone (BUSPAR) 15 mg tablet TAKE ONE TABLET BY MOUTH THREE TIMES A DAY 90 Tablet 2 05/25/20 24 Active FARXIGA 10 mg tabIndications:Ty pe 2 diabetes mellitus without complication, without long-term current use of insulin ([facility]) TAKE ONE TABLET BY MOUTH DAILY 30 Tablet 05/25/20 24 Active traZODone (DESYREL) 50 mg tabletIndications :Insomnia, unspecified type TAKE ONE TABLET BY MOUTH AT BEDTIME 30 Tablet 05/25/20 24 Active VITAMIN D3 50 mcg (2,000 unit) capsuleIndication s:Vitamin D deficiency TAKE ONE CAPSULE BY MOUTH DAILY 30 Capsule 07/12/20 24 Active FREESTYLE TEST stripsIndications :Type 2 diabetes mellitus without complication, without long-term current use of insulin ([facility]) CHECK BLOOD SUGAR ONCE DAILY BEFORE EATING . DX.E11.9 FREESTYLE 100 Each 08/04/20 24 Active FREESTYLE LANCETS 28 gaugeIndications: Type 2 diabetes mellitus without complication, without long-term current use of insulin ([facility]) CHECK BLOOD SUGAR ONCE DAILY BEFORE EATING . DX.E11.9 FREESTYLE 100 Each 08/04/20 24 Active gabapentin (NEURONTIN) 300 mg capsuleIndication s:Bilateral hip pain TAKE ONE CAPSULE BY MOUTH THREE TIMES A DAY 90 Capsule 4 08/26/20 24 Active montelukast (SINGULAIR) 10 mg tabletIndications :Seasonal allergies TAKE ONE TABLET BY MOUTH AT BEDTIME 30 Tablet 5 02/11/20 25 Active dulaglutide (TRULICITY) 1.5 mg/0.5 mL pen injectorIndicatio ns:Type 2 diabetes mellitus without complication, without long-term current use of insulin ([facility]) INJECT 0.5 ML EVERY WEEK BY SUBCUTANEOUS ROUTE. 2 mL 5 02/11/20 25 Active celecoxib (CELEBREX) 100 mg capsuleIndication s:Arthralgia, unspecified joint Take 1 Capsule by mouth 2 (two) times daily 60 Capsule 03/05/20 25 Active atorvastatin (LIPITOR) 20 mg tabletIndications :Mixed hyperlipidemia Take 1 Tablet by mouth nightly at bedtime for 180 days TAKE ONE TABLET BY MOUTH AT BEDTIME 90 Tablet 1 03/05/20 25 025 Active albuterol HFA 90 mcg/actuation inhalerIndication s:SOB (shortness of breath) on exertion Inhale 2 Puffs into the lungs every 4 to 6 (four to six) hours as needed for shortness of breath 18 g 03/05/20 25 Active meclizine (ANTIVERT) 25 mg tabletIndications :Benign paroxysmal positional vertigo, unspecified laterality Take 1 Tablet by mouth once daily as needed for nausea or dizziness 90 Tablet 03/05/20 25 Active loratadine (CLARITIN) 10 mg tabletIndications :Seasonal allergies TAKE ONE TABLET BY MOUTH DAILY NEEDED 90 Tablet 1 03/05/20 25 Active metFORMIN (GLUCOPHAGE) 1,000 mg tabletIndications :Type 2 diabetes mellitus without complication, without long-term current use of insulin ([facility]) Take 1 Tablet by mouth once daily with breakfast 180 Tablet 03/05/20 25 Active levothyroxine 75 mcg tabletIndications :Hypothyroidism, unspecified type Take 1 Tablet by mouth every morning before breakfast. 90 Tablet 1 04/30/20 25 Active levothyroxine 100 mcg tabletIndications :Hypothyroidism, unspecified type TAKE ONE TABLET BY MOUTH EVERY MORNING BEFORE MEALS 90 Tablet 1 12/24/19 25 025 Discontin ued(Quant ity/Dosag e and/or Sig change) Active Problems Problem Noted Date Diagnosed Date Vitamin B12 deficiency 10/07/2019 Bilateral hip pain R>L 2/2 trochanteric bursitis - F/U [facility] 01/12/2018 Overview (09/20/2018): F/U [facility] Jessy 01/01/18 - [facility]: Ap/lateral xray of R hip ordered, consider trochanteric bursa injections after x-ray review. F/U 1 week. 01/09/18 - [facility]: R Trochanteric bursitis tx: Depomedrol 80 mg and 3 cc 2% lidocaine injected in R greater trochanteric bursa. F/U 2 weeks. 06/13/18 - F/U [facility] Bilateral medial epicondylitis of elbow joint - F/U [facility] 11/01/2017 Overview (09/06/2018): 11/27/17 Eval at [facility]. Dx: medial and lateral epicondylitis bilateral elbows. Recommend PT, f/u 6 weeks if no improvement. 06/18/18 - seen at [facility] ED c/o slip and fall injury landing on L knee elbow and ankle. L knee, elbow and ankle xrays negative. discharged Insomnia due to anxiety and fear - F/U [facility] psych 10/01/2017 Overview (10/01/2017): PSYCH AT [facility] ON [address] Chronic right-sided low back pain with right-sided sciatica (Sacroiliitis) - F/U [facility] 02/01/2017 Overview (08/12/2019): X-rays 05/07/17 at [facility] = degenerative changes lumbar spine. F/u [facility] 01/23/18 - [facility]: Dx: sacroiliitis Tx: PT ordered. F/U 5 weeks 05/12/18 - Seen by [facility]: Dx: sacroiliitis Tx: home exercises program and PT for core pelvic stabilization 06/13/18 - F/U [facility] 08/19/18 - F/U [facility] 08/22 - 10/02/18 - [facility] PT 3x/w x 6 wks for b/l knee and LBP 09/16/18 - 10/13/18 - [facility] PT Pt will c/w PT 3x/w x 4 wks for an additional 12 visits total 22 visits since start of care 10/07/18 - [facility] F/U: no improvement with PT. Plan: home exercise program. Recommend steroid injections. F/U 2-3 wks 12/17/18 - RIGHT L5 medial branch block, and S1, S2, S3 lateral branch blocks. 12/02/18 - [facility] F/U: pt with SI pain, had 100% improvement of sxs with recent SI injections for 4 days only. She is morbidly obese exacerbates low back pain. Recommend home exercise program, Recommend b/l diagnostic L5 S1-S3 LBB prior to consideration of RF. 01/07/19 - [facility] F/U: Recommend b/l S1-S3 RF ablation. F/U 2-3 wks after. 08/22/19 - 10/02/19 - [facility] PT for b/l knee and low back pain 3x/wk x 6 wks. Chronic pain of both shoulders 11/27/2016 Overview (05/17/2018): 03/14/18 - Seen by [facility] c/o b/l shoulder pain L>R and neck pain. XRAYS of b/l shoulders: AC joint moderate arthritic changes, glenohumeral joint is well preserved. XRAY C-SPINE shows moderate multi-level arthritic changes. A: relatively benign exam today with primary sxs emanating from body habitus and cervical arthrosis. Most if her sxs were lizzy-cervical muscular tenderness/irritation. Could not exclude potential of fibromyalgia. Plan: Conservative tx with weight loss, PT, NSAIDS and F/U with [facility] Chest pain 08/03/2016 Overview (07/08/2019): 02/25/18 - 02/27/18 [facility] ED for left sided numbness w/ concern for stroke/TIA. NIHSS was initially 1 then zero. ACS ruled out - CT head and CT head and neck negative, ECHO with good EF 60-65%. MRI brain WNL. Pt was evaluated with neurology. D/c home with walker. 02/28/18 - 03/04/18 [facility] hospitalization with hypotension with concern for adrenal insufficiency. Was evaluated by endocrine (see reports). Hypotension was thought to be likely caused by tizanidine. HCTZ held. Neurology recommended outpatient loop device. 03/29/18 - seen at [facility] for dizzy spells, weakness, chest pain. EKG and troponins were negative. Chest pain resolved. Discharged home. 04/15/18 - [facility]: cp sxs have been chronic about 1 year. NO signs of CHF. sxs not typical for ischemia. Will arrange for Regadenosin MPI 05/01/18 - Pharmacologic (Regadenosin) Myocardial Perfusion Scan: Impression: probably normal. There is no definitive evidence of ischemia or infarct on myocardial perfusion imaging. The LV appears mildly larger on stress than rest images. LVEF: 67%. NO EKG changes or arrhythmias. Chronic CP throughout testing. 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 Some evidence of IT band syndrome. Refer PT, MRI R knee, F/U 6 wks 01/05/17 MRI R knee at [facility] = mildly progressive cartilage loss and bone marrow edema within lateral tibiofemoral joint. F/u Dr. Jackson at [facility]. Had R knee injections at [facility] x 2 (improvmeent of sxs after 1st injection only) 01/01/18 - [facility] - PT for R knee OA; 08/22 - 10/02/18 - [facility] PT 3x/w x 6 wks for b/l knee and LBP 09/16/18 - 10/13/18 - [facility] Ex PT Pt will c/w PT 3x/w x 4 wks for an additional 12 visits total 22 visits since start of care 08/22/19 - 10/02/19 - [facility] PT for b/l knee and low back pain 3x/wk x 6 wks. 04/24/14 - MRI right knee done [place], [place] = 1. Free edge tear lateral meniscus, 2. Moderate chondromalacia lateral plateau, 3. Mild chondromalacia patella Constipation due to iron replacement 03/01/2016 Allergic rhinitis 03/01/2016 Resolved Problems Problem Noted Date Diagnosed Date Resolved Date Lateral epicondylitis of both elbows 11/27/2016 02/16/2018 Encounters Date Type Department Care Team Description 04/30/2025 Results Follow-Up [address] [phone] Terese Roth PA-C 04/26/2025 2:40 PM EDT Office Visit [address] [phone] Terese Roth PA-C 03/10/2025 Results Follow-Up [address] [phone] Terese Roth PA-C 03/10/2025 Results Follow-Up [address] [phone] Terese Roth PA-C 03/05/2025 3:40 PM EDT Office Visit [address] [phone] Terese Roth PA-C from Last 3 Months Immunizations Immunization Administration Dates Next Due Flu, Multi Dose 0.5 ML 09/25/2019 Flu, Preservative Free 08/27/2023,10/12/2020, Hep B,adult,adjuvanted (HEPLISAV) 12/04/2024 INFLUENZA, SEASONAL, INJECTABLE 09/25/2019 PNEUMOCOCCAL CONJUGATE PCV 20 (Prevnar 20) 05/17 PNEUMOCOCCAL POLYSACCHARIDE PPV23 (Pneumovax 23) 10/12/2020 PPD 08/02/2017 TDAP 10/12/2020,01/05/2013 ZOSTER VACCINE, RECOMBINANT (SHINGRIX) 3,10/12/2020 Social History Tobacco Use Types Packs/Day Years Used Date Smoking Tobacco: Never Smokeless Tobacco: Never Tobacco Cessation:Counseling Given: Yes Alcohol Use Standard Drinks/Week Comments No 0 (1 standard drink = 0.6 oz pur e alcohol) Social Connections Answer Date Recorded Connectedness 1 11/20/2023 Financial Resource Strain Answer Date R ecorded Financial Resource Strain 1 2023 Stress Answer Date Recorded Stress 1 11/20/2023 Physical Activity Answer Date Recorded Physical Activity 0 07/04/2019 Food Insecurity Answer Date Recorded Food 2 11/20/2023 Transportation Needs Answer Date Record ed Transportation 1 11/20/2023 Housing Stability Answer Date Recorded Housing 2 11/20/2023 Safety and Environment Answer Date Valentino rded Safety 0 07/04/2019 Utilities Answer Date Recorded Utilities 1 11/20/2023 Employment Answer Date Recorded Employment 0 07/04/2019 Comments No Sex and Gender Information Value Date Recorded Sex Assigned at Female 10/01/2017 5:49 AM PST Legal Sex Female 11:33 AM PST Gender Identity Female 10/01/2017 5:49 AM PST Sexual Orientation Straight 10/01/2017 8: 23 AM PST Last Filed Vital Signs Vital Sign Reading Time Taken Comments Blood Pressure 106/76 04/26/2025 2:39 PM EDT Pulse 61 04/26/2025 2:39 PM EDT Temperature 36.7 C (98.1 F) 04/26/2025 2:39 PM EDT Respiratory Rate 16 04/26/2025 2:39 PM EDT Oxygen Saturation 96% 04/26/2025 2:39 PM EDT Inhaled Oxygen Concentration - - Weight 91.8 kg (202 lb 4.8 oz) 04/26/2025 2:39 P M EDT Height 154.9 cm (5' 1 ) 04/26/2025 2:39 PM EDT Body Mass Index 38.22 04/26/2025 2:39 PM EDT Plan of Treatment Health Maintenance Due Date Last Done Comments Anxiety Screening 1966 Dental FMX/Pano 1966 Dental Perio Charting 1966 HPV Screening 1966 Medicare Annual Wellness Visit 1984 CT Colonography 2011 FIT/gFOBT 2011 Fecal DNA 2011 Flexible Sigmoidoscopy 2011 Dental Prophy 01/19/2024 07/19/2023 Diabetes Foot Exam 05/17/2024 05/17/2023, 0 03/19/2019 (Managed by Outside Provider), 01/15/2019 (Managed by Outside Provider), Additional history exists [id number] () 07/12/2024 021, 03/08/2021 Dental BW 07/21/2024 07/19/2023 Dental Examination 07/21/2024 07/19/2023 Imm-Hepatitis B (2 of 2 - Cp G 2-dose series) 01/01/2025 12/04/2024 Urine Albumin Creatinine Rat io Screening 02/20/2025 02/21/2024, 12/12/2022, 07/08/2019 Depression Monitoring 06/04/2025 03/05/2025 , 12/04/2024, 06/22/2024, Additional history exists Hemoglobin A1c 09/08/2025 03/09/2025, 11/12, 02/21/2024, Additional history exists Breast Cancer Screening (Mammogram) 10/27/2025 10/27/2024, 03/03/2023, 02/20/2023, Additional history exists Lipid Screening 12/04/2025 12/04/2024, 11/11, 05/17/2023, Additional history exists Serum Creatinine 03/09/2026 03/09/2025, , 02/21/2024, Additional history exists Retinopathy Screening 04/26/2026 04/26/2025 (Managed by Outside Provider), 03/07/2023, 03/25/2017 TSH Monitoring 04/26/2026 04/26/2025, 02/10, 12/04/2024, Additional history exists Tobacco Screening 04/26/2026 04/26/2025 Pap Smear 08/27/2026 08/27/2023, 04/12, 05/03/2016 Colonoscopy 08/06/2028 08/06/2018 Colorectal Cancer Screening 08/06/2028 Cervical Cancer Screening 08/27/2028 Pap + HPV 08/27/2028 08/27/2023 Imm-DTaP/Tdap/Td (3 - Td or Tdap) 10/12/2030 020, 01/05/2013 HIV Screening Completed 12/12/2022, 10/07/2019 Hepatitis C Screening Completed 12/12/2022 Imm-Pneumococcal 50+ Completed 05/17/2023, 10/12/20 Imm-Zoster, Recombinant Completed 05/17/2023, 10/12 Imm-Influenza Discontinued 08/27/2023, 12/2019, 09/25/2019, Additional history exists Alcohol and Drug Screen Completed 12/04/19, 11/20/2023, 05/17/2023, Additional history exists Cervical Ablation/Cold-Knife Conization Discontinued Cervical Cryotherapy Discontinued Colposcopy Discontinued Endometrial Biopsy Discontinued Excision/Leep Discontinued HPV Genotyping Discontinued Vaginal Pap Discontinued Vulvoscopy Discontinued Goals Goal Patient Goal Type Associated Problems Recent Progress Patient-Stated? Author Exercise 2x a week Exercise No Obey Waddell Note: Patient's action plan is to begin working out twice a week. Starting this week on 07/20/2016 for [facility] at the [facility] wellness center. Procedures Procedure Name Priority Date/Time Associated Diagnosis Comments IMAGING SCANNED DOCUMENT 05/06/2025 3:00 AM EDT ASSAY OF FREE THYROXINE Routine 04/26/2025 3:10 PM EDT TSH W/RFLX FREE T4 Routine 04/26/2025 3: 10 PM EDT Hypothyroidism, unspecified type REFERRAL SCANNED DOCUMENT 03/19/2025 3:00 AM EDT QUANTIFERON-TB GOLD PLUS Routine 03/09/2025 9:50 AM EDT HGA1C W/EAG Routine 03/09/2025 9:50 AM EDT ASSAY OF FREE THYROXINE Routine 03/09/2025 9:50 AM EDT TSH W/RFLX FREE T4 Routine 03/09/2025 9: 50 AM EDT B TYPE NATRIURETIC PEPTIDE (BNP) Routine 03/09/2025 9:50 AM EDT COMPREHENSIVE METABOLIC PANEL Routine 03/09/2025 9:50 AM EDT RFLX - REFLEXIVE URINE CULTURE Routine 03/09/2025 9:50 AM EDT BLOOD COUNT COMPLETE AUTO&AUTO DIFRNTL WBC Routine 03/09/2025 9:50 AM EDT URINALYSIS, COMPLETE W/REFLEX TO CULTURE Routine 03/09/2025 9:50 AM EDT Bad odor of urine RADIOLOGIC EXAM CHEST 2 VIEWS Routine 03/09/2025 3:00 AM EDT SOB (shortness of breath) on exertion Dizziness MEDICATIONS SCANNED DOCUMENT 03/05/2025 3:00 AM EDT LIPIDS W RFLX TO DIRECT LDL Routine 12/04/2024 9:49 AM EST Mixed hyperlipidemia MICROALBUMIN/CREATINI NE RATIO, URINE, RANDOM Routine 02/21/2024 9:56 AM EDT Type 2 diabetes mellitus without complication, without long-term current use of insulin ([facility]) THINPREP PAP & HPV MRNA E6/E7 RFLX HPV 16,18/[address]/NG Routine 08/27/2023 10:29 AM EDT Encounter for Papanicolaou smear of vagina as part of routine gynecological examination Encounter for screening for human papillomavirus (HPV) Screening for STDs (sexually transmitted diseases) BITEWINGS - FOUR RADIOGRAPHIC IMAGES Routine 07/19/2023 3:00 PM EDT Caries of enamel (incipient) Caries Encounter for dental examination and cleaning without abnormal findings PROPHYLAXIS - ADULT Routine 07/19/2023 3 :00 PM EDT Caries of enamel (incipient) Caries Encounter for dental examination and cleaning without abnormal findings PERIODIC ORAL EVALUATION ESTABLISHED PATIENT Routine 07/19/2023 3:00 PM EDT Caries of enamel (incipient) Caries Encounter for dental examination and cleaning without abnormal findings EYE EXAM 03/07/2023 3:00 AM EDT HISTORIC MAMMOGRAM 02/20/2023 3: 00 AM EDT HIV 1/2 AG & AB W/RFLX (4TH GEN) Routine 12/12/2022 10:21 AM EST Routine lab draw HEPATITIS C AB W/RFLX HCV RNA, QT, RT PCR Routine 12/12/2022 10:21 AM EST Routine lab draw COLONOSCOPY Routine 08/06/2018 9:24 AM EDT from Last 3 Months or Most Recently Relevant to Health Maintenance Results * IMAGING SCANNED DOCUMENT (05/06/2025 3:00 AM EDT) 05/06/2025 3:00 AM EDT [employer] PA-C SCAN IMAGING Final Result * (ABNORMAL) TSH W/RFLX FREE T4 Routine (04/26/2025 3:10 PM EDT) Only the most recent of2 resultswithin the time period is included. TSH W/REFLEX TO FT4 0.31(L) 0.40 - 4.50 mIU/L [facility] Blood Blood / Unknown 04/26/2025 3 :10 PM EDT 04/26/2025 3:11 PM EDT [employer] Roth PA-C LAB - BLOOD DRAW Final Resul t [facility] [address] [address], [employer] [address] [phone] * ASSAY OF FREE THYROXINE Routine (04/26/2025 3:10 PM EDT) Only the most recent of2 resultswithin the time period is included. T-4, FREE 1.2 0.8 - 1.8 ng/dL [facility] 04/26/2025 3:10 PM EDT 04/26/2025 3:11 PM EDT Terese Roth PA-C LAB - BLOOD DRAW Final Resul t [facility] [address] [place] [id number], [facility] [address] [place] [phone] * REFERRAL SCANNED DOCUMENT (03/19/2025 3:00 AM EDT) 03/19/2025 3:00 AM EDT Terese Roth PA-C SCAN REFERRAL Final Result * QUANTIFERON-TB GOLD PLUS (03/09/2025 9:50 AM EDT) [facility] QUANTIFERON NEGATIVE NEGATIVE [facility] Comment: Negative test result. M. tuberculosis complex infection unlikely. NIL 0.01 IU/mL [facility] MITOGEN-NIL 9.25 IU/mL [facility] TB1-NIL 0.00 IU/mL [facility] TB2-NIL 0.00 IU/mL [facility] Comment: The Nil tube value reflects the background interferon gamma immune response of the patient's blood sample. This value has been subtracted from the patient's displayed TB and Mitogen results. Lower than expected results with the Mitogen tube prevent false-negative Quantiferon readings by detecting a patient with a potential immune suppressive condition and/or suboptimal pre-analytical specimen handling. The TB1 Antigen tube is coated with the M. tuberculosis-specific antigens designed to elicit responses from TB antigen primed CD4+ helper T-lymphocytes. The TB2 Antigen tube is coated with the M. tuberculosis-specific antigens designed to elicit responses from TB antigen primed CD4+ helper and CD8+ cytotoxic T-lymphocytes. For additional information, please refer to https://education.[employer]/faq/DKW770 (This link is being provided for informational/ educational purposes only.) 03/09/2025 9:50 AM EDT 03/09/2025 9:51 AM EDT Narrative [facility] - 03/12/2025 5:44 AM EDT FASTING:YES Terese Roth PA-C LAB - BLOOD DRAW Final Resul t Performing Organization Address [facility] de Phone Number [facility] [address] [place] [phone], [employer] [address] [place] [phone] * (ABNORMAL) HGA1C W/EAG (03/09/2025 9:50 AM EDT) HEMOGLOBIN A1C 6.1(H) <5.7 % [facility] Comment: For someone without known diabetes, a hemoglobin A1c value between 5.7% and 6.4% is consistent with prediabetes and should be confirmed with a follow-up test. For someone with known diabetes, a value <7% indicates that their diabetes is well controlled. A1c targets should be individualized based on duration of diabetes, age, comorbid conditions, and other considerations. This assay result is consistent with an increased risk of diabetes. Currently, no consensus exists regarding use of hemoglobin A1c for diagnosis of diabetes for children. EAG (MG/DL) 128 mg/dL [facility] EAG (MMOL/L) 7.1 mmol/L [facility] 03/09/2025 9:50 AM EDT 03/09/2025 9:51 AM EDT Narrative [facility] - 03/12/2025 5:44 AM EDT FASTING:YES Terese Roth PA-C LAB - BLOOD DRAW Edited Resu lt - Final Performing Organization Address [facility] Co de Phone Number [facility] [address] [place] [address], [employer] [address] [place] [phone] * (ABNORMAL) URINALYSIS, COMPLETE W/REFLEX TO CULTURE (03/09/2025 9:50 AM EDT) COLOR YELLOW YELLOW [facility] APPEARANCE CLEAR CLEAR [facility] SPECIFIC GRAVITY 1.021 1.001 - 1.035 [facility] URINE PH 6.5 5.0 - 8.0 [facility] GLUCOSE 3+(A) NEGATIVE [facility] BILIRUBIN NEGATIVE NEGATIVE [facility] KETONES NEGATIVE NEGATIVE [facility] OCCULT BLOOD NEGATIVE NEGATIVE [facility] URINE PROTEIN NEGATIVE NEGATIVE [facility] NITRITE NEGATIVE NEGATIVE [facility] LEUKOCYTE ESTERASE NEGATIVE NEGATIVE [facility] URINE LEUKOCYTES NONE SEEN < OR = 5 [facility] RBC NONE SEEN < OR = 2 [facility] SQUAMOUS EPITHELIAL CELLS NONE SEEN < OR = 5 [facility] BACTERIA NONE SEEN NONE SEEN [facility] HYALINE CAST NONE SEEN NONE SEEN [facility] SEE NOTE See Below [facility] Comment: This urine was analyzed for the presence of WBC, RBC, bacteria, casts, and other formed elements. Only those elements seen were reported. Urine Urine specimen / Unknown 03/09/2025 9:50 AM EDT 03/09/2025 9:51 AM EDT Narrative [facility] - 03/12/2025 5:44 AM EDT FASTING:YES Tulane Universityina Roth PA-C LAB URINE AMBULATORY Edited Result - Final Performing Organization Address City/[facility]/ZIP Co de Phone Number [facility] [address] [address], [employer] [address] [phone] * RFLX - REFLEXIVE URINE CULTURE (03/09/2025 9:50 AM EDT) REFLEXIVE URINE CULTURE See Below [employer] [facility] Comment:NO CULTURE INDICATED 03/09/2025 9:50 AM EDT 03/09/2025 9:51 AM EDT Narrative [facility] - 03/12/2025 5:44 AM EDT FASTING:YES [email or web address] PA-C LAB - MICROBIOLOGY AMBULATOR Y Edited Result - Final Performing Organization Address [facility]/ZIP Co de Phone Number [facility] [address] [address], [employer] [address] [phone] * B TYPE NATRIURETIC PEPTIDE (BNP) (03/09/2025 9:50 AM EDT) [facility] B TYPE NATRIURETIC PEPTIDE (BNP) 33 <100 pg/mL [facility] Comment: BNP levels increase with age in the general population with the highest values seen in individuals greater than 75 years of age. Reference: J. Am. Sharri. Cardiol. 2002; 40:976-982. 03/09/2025 9:50 AM EDT 03/09/2025 9:51 AM EDT Narrative [facility] - 03/12/2025 5:44 AM EDT FASTING:YES Terese Roth PA-C LAB - BLOOD DRAW Edited Resu lt - Final [facility] [address] [address], [facility] [address] [phone] * BLOOD COUNT COMPLETE AUTO&AUTO DIFRNTL WBC (03/09/2025 9:50 AM EDT) [facility] WHITE BLOOD CELL COUNT 9.3 3.8 - 10.8 Thousand/ uL [facility] RED BLOOD CELL COUNT 4.46 3.80 - 5.10 Million/u L [facility] HEMOGLOBIN 13.1 11.7 - 15.5 g/dL [facility] HEMATOCRIT 40.9 35.0 - 45.0 % [facility] MCV 91.7 80.0 - 100.0 fL [facility] MCH 29.4 27.0 - 33.0 pg [facility] MCHC 32.0 32.0 - 36.0 g/dL [facility] Comment: For adults, a slight decrease in the calculated MCHC value (in the range of 30 to 32 g/dL) is most likely not clinically significant; however, it should be interpreted with caution in correlation with other red cell parameters and the patient's clinical condition. RDW 13.0 11.0 - 15.0 % [facility] PLATELET COUNT 334 140 - 400 Thousand/ uL [facility] MPV 9.4 7.5 - 12.5 fL [facility] ABSOLUTE NEUTROPHILS 6,464 1,500 - 7,800 cells/uL [facility] ABSOLUTE LYMPHOCYTES 2,009 850 - 3,900 cells/uL [facility] ABSOLUTE MONOCYTES 642 200 - 950 cells/uL [facility] ABSOLUTE EOSINOPHILS 130 15 - 500 cells/uL [facility] ABSOLUTE BASOPHILS 56 0 - 200 cells/uL [facility] [place] [facility] NEUTROPHILS PCT 69.5 % [facility] LYMPHOCYTES 21.6 % [facility] MONOCYTES 6.9 % [facility] EOSINOPHILS 1.4 % [facility] [employer] [facility] BASOPHILS 0.6 % [facility] 03/09/2025 9:50 AM EDT 03/09/2025 9:51 AM EDT Narrative [facility] - 03/12/2025 5:44 AM EDT FASTING:YES Terese Roth PA-C LAB - BLOOD DRAW Edited Resu lt - Final [facility] [address] [address], [facility] [address] [address] * (ABNORMAL) COMPREHENSIVE METABOLIC PANEL (03/09/2025 9:50 AM EDT) GLUCOSE 103(H) 65 - 99 mg/dL [facility] Comment: Fasting reference interval For someone without known diabetes, a glucose value between 100 and 125 mg/dL is consistent with prediabetes and should be confirmed with a follow-up test. UREA NITROGEN (BUN) 20 7 - 25 mg/dL [facility] CREATININE (blood) 0.65 0.50 - 1.03 mg/dL [facility] EGFR 102 > OR = 60 mL/min/1. 73m2 [facility] BUN/CREATININE RATIO SEE NOTE: [facility] Comment: Not Reported: BUN and Creatinine are within reference range. SODIUM 141 135 - 146 mmol/L [facility] POTASSIUM 5.0 3.5 - 5.3 mmol/L [facility] CHLORIDE 103 98 - 110 mmol/L [facility] CARBON DIOXIDE 29 20 - 32 mmol/L [facility] CALCIUM 9.6 8.6 - 10.4 mg/dL [facility] PROTEIN, TOTAL 7.3 6.1 - 8.1 g/dL [facility] ALBUMIN 3.9 3.6 - 5.1 g/dL [facility] GLOBULIN 3.4 1.9 - 3.7 g/dL (calc) [facility] ALBUMIN/GLOBULI N RATIO 1.1 1.0 - 2.5 (calc) [facility] BILIRUBIN, TOTAL 0.5 0.2 - 1.2 mg/dL [facility] ALKALINE PHOSPHATASE 108 37 - 153 U/L [facility] AST 19 10 - 35 U/L [facility] ALT 18 6 - 29 U/L [facility] 03/09/2025 9:50 AM EDT 03/09/2025 9:51 AM EDT Narrative [facility] - 03/12/2025 5:44 AM EDT FASTING:YES Terese Roth PA-C LAB - BLOOD DRAW Edited Resu lt - Final [facility] [address] [address], [facility] [address] [phone] * RADIOLOGIC EXAM CHEST 2 VIEWS (03/09/2025 3:00 AM EDT) 03/09/2025 3:00 AM EDT Terese Roth PA-C IMG XRAY Final Result * MEDICATIONS SCANNED DOCUMENT (03/05/2025 3:00 AM EDT) 03/05/2025 3:00 AM EDT [facility] Provider Default SCAN MEDS OTHER ORDERS Fin al Result * (ABNORMAL) LIPIDS W RFLX TO DIRECT LDL (12/04/2024 9:49 AM EST) CHOLESTEROL, TOTAL 124 <200 mg/dL [facility] HDL CHOLESTEROL 41(L) > OR = 50 mg/dL [facility] TRIGLYCERIDES 126 <150 mg/dL [facility] LDL-CHOLESTEROL 62 99 mg/dL (calc) [facility] Comment: Reference range: <100 Desirable range <100 mg/dL for primary prevention; <70 mg/dL for patients with CHD or diabetic patients with > or = 2 CHD risk factors. LDL-C is now calculated using the Julio C calculation, which is a validated novel method providing better accuracy than the Friedewald equation in the estimation of LDL-C. Parveen SS et al. MIC. 2013;310(19): 6125-8413 (http://education.Monitor/faq/KMK610) CHOL/HDLC RATIO 3.0 <5.0 (calc) [facility] NON-HDL CHOLESTEROL 83 <130 mg/dL (calc) [facility] Comment: For patients with diabetes plus 1 major ASCVD risk factor, treating to a non-HDL-C goal of <100 mg/dL (LDL-C of <70 mg/dL) is considered a therapeutic option. Blood Blood / Unknown 12/04/2024 9 :49 AM EST 12/04/2024 9:50 AM EST Narrative [facility] - 12/05/2024 4:43 AM EST FASTING:YES Terese Roth PA-C LAB - BLOOD DRAW Final Resul t [facility] [address] [place] [phone], [facility] [address] [phone] * MICROALBUMIN/CREATININE RATIO, URINE, RANDOM (02/21/2024 9:56 AM EDT) CREATININE, RANDOM URINE 105 20 - 275 mg/dL [facility] MICROALBUMIN 1.6 mg/dL [facility] Comment: Reference Range Not established MICROALBUMIN/CREA TININE RATIO, RANDOM URINE 15 <30 mg/g creat [facility] Comment: The ADA defines abnormalities in albumin excretion as follows: Albuminuria Category Result (mg/g creatinine) Normal to Mildly increased <30 Moderately increased 30-299 Severely increased > OR = 300 The ADA recommends that at least two of three specimens collected within a 3-6 month period be abnormal before considering a patient to be within a diagnostic category. Urine Urine specimen / Unknown 02/21/2024 9:56 AM EDT 02/21/2024 9:56 AM EDT Narrative [facility] - 02/22/2024 7:48 PM EDT FASTING:YES us Terese Roth PA-C LAB URINE AMBULATORY Final R esult [facility] [address] [place] [address], [facility] [address] [place] [phone] * THINPREP PAP & HPV MRNA E6/E7 RFLX HPV 16,18/[address]/NG (08/27/2023 10:29 AM EDT) CHLAMYDIA TRACHOMATIS RNA, TMA NOT DETECTED NOT DETECTED [facility] NEISSERIA GONORRHOEAE RNA, TMA NOT DETECTED NOT DETECTED [facility] COMMENT [facility] CLINICAL INFORMATION See Note [facility] Comment:Routine exam LMP See Note [facility] Comment:NONE GIVEN PREV. PAP See Note [facility] Comment:NONE GIVEN PREV. BX See Note [facility] Comment:NONE GIVEN SOURCE See Note [facility] Comment:Cervix STATEMENT OF ADEQUACY See Note [facility] Comment:SATISFACTORY FOR FRANKLIN LUATION INTERPRETATION/RESU LT See Note [facility] Comment: Cytology Results: Negative for intraepithelial lesion or malignancy. Atrophic pattern; predominantly parabasal cells EXTRA HAND See Note [facility] [employer] Comment: EXJ, CT(ASCP) CT Screening Location: [address] [address] COMMENT [facility] HPV MRNA E6/E7 Not Detected Not Detected [facility] Comment: Methodology: [employer]-Mediated Amplification This assay detects E6/E7 viral messenger RNA (mRNA) from 14 high-risk HPV types (16,18,31,33,35,39,45,51,52,56,58,59,66,68). Cervical sources are required for HPV testing. If a vaginal source from a patient who has had a total hysterectomy with removal of cervix was submitted, please contact the testing laboratory for alternative testing options. For additional information, please refer to http://[employer]/faq/NAQ525h0 (This link if provided for information/ educational purposes only.) CYTOLOGY Cervix uteri structure / Unknown 08/27/2023 10:29 AM EDT 08/28/2023 8:31 AM EDT Narrative [facility] - 08/28/2023 10:09 PM EDT EXPLANATORY NOTE: The Pap is a screening test for cervical cancer. It is not a diagnostic test and is subject to false negative and false positive results. It is most reliable when a satisfactory sample, regularly obtained, is submitted with relevant clinical findings and history, and when the Pap result is evaluated along with historic and current clinical information. The analytical performance characteristics of this assay, when used to test SurePath(TM) specimens have been determined by [employer]. The modifications have not been cleared or approved by the FDA. This assay has been validated pursuant to the CLIA regulations and is used for clinical purposes. For additional information, please refer to https://[employer]/faq/TVO924 (This link is being provided for information/ educational purposes only.) us Andrew Huddleston MD LAB - PATHOLOGY AND CYTOLOGY AMB ULATORY Final Result [facility] [address] [address], [facility] [address] [phone] * EYE EXAM (03/07/2023 3:00 AM EDT) 03/07/2023 3:00 AM EDT us Terese Roth PA-C OTHER Final Result * HISTORIC MAMMOGRAM (02/20/2023 3:00 AM EDT) 02/20/2023 3:00 AM EDT us Terese Rtoh PA-C IMG MAMMO Edited Resul t - Final * Hep C Antibody with Reflex HCV RNA (12/12/2022 10:21 AM EST) HEPATITIS C ANTIBODY NON-REACT VIMAL NON-REACT VIMAL [facility] SIGNAL TO CUT-OFF <0.02 <1.00 [facility] Comment: HCV antibody was non-reactive. There is no laboratory evidence of HCV infection. In most cases, no further action is required. However, if recent HCV exposure is suspected, a test for HCV RNA (test code 34467) is suggested. For additional information please refer to http://[employer]/faq/DWL24f9 (This link is being provided for informational/ educational purposes only.) Blood Blood / Unknown 12/12/2022 1 0:21 AM EST 12/12/2022 10:22 AM EST Terese Roth PA-C LAB - BLOOD DRAW Edited Resu lt - Final [facility] [address] [place] [address], [facility] [address]) [place] [address] * HIV Ag & Ab with Reflex Western Blot (12/12/2022 10:21 AM EST) HIV AG/AB, 4TH GEN NON-REAC TIVE NON-REAC TIVE [facility] Comment: HIV-1 antigen and HIV-1/HIV-2 antibodies were not detected. There is no laboratory evidence of HIV infection. PLEASE NOTE: This information has been disclosed to you from records whose confidentiality may be protected by state law. If your state requires such protection, then the state law prohibits you from making any further disclosure of the information without the specific written consent of the person to whom it pertains, or as otherwise permitted by law. A general authorization for the release of medical or other information is NOT sufficient for this purpose. For additional information please refer to http://[employer]ER.[employer]/faq/DMV722 (This link is being provided for informational/ educational purposes only.) The performance of this assay has not been clinically validated in patients less than 2 years old. Blood Blood / Unknown 12/12/2022 1 0:21 AM EST 12/12/2022 10:22 AM EST Terese Roth PA-C LAB - BLOOD DRAW Final Resul t [facility] [address] [facility] [address] [place] [address], [facility] [address] [facility] ([address]) [place] [address] * COLONOSCOPY (08/06/2018 9:24 AM EDT) Impressions Lili Vincent MA - 08/06/2018 9:24 AM EDT Colonoscopy impression: large internal hemorrhoids Repeat 10 years us Provider [place] PROCEDURES Final Result from Last 3 Months or Most Recently Relevant to Health Maintenance Insurance [facility] - DENTAL [facility] Care Teams Physical Therapist Center Manager Relationship Specialty Start Date End Date Terese Roth PA-C [address] [place] [address] PCP - General Internal Medicine 11/19/22
--- OUTSIDE RECORDS SUMMARY | 2025-05-20 12:08 | XMS_ITS | Clinical Summary ---
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 Plant Science Professor Name Role Phone eTrese Roth Primary Care Provider Encounters Date Type Department Care Team Description 05/06/2025 2:12 PM EDT - 05/06/2025 11:59 PM EDT Hospital Encounter [facility] Xray [address] [place] [address] Pain in right toe(s) Discharge Disposition: Home or Self Care 03/09/2025 9:00 AM EDT - 03/09/2025 11:59 PM EDT Hospital Encounter [facility] Xray [address] [place] [address] Shortness of breath; Dizziness and giddiness Discharge Disposition: Home or Self Care from Last 3 Months Medical History Medical History Date Comments Cobalamin deficiency 03/07/2021 DX:Cobalami n deficiency Vitamin D deficiency 03/07/2021 DX:Vitamin D deficiency Mixed anxiety and depressive disorder 03/07/2021 DX:Mixed anxiety and depressive disorder Migraine 03/07/2021 DX:Migraine Seasonal allergies 03/07/2021 DX:Seasonal a llergies Gastroesophageal reflux dise ase without esophagitis 03/07/2021 DX:Gastroesophageal reflux d isease without esophagitis Other somatoform disorders 03/10/2021 DX:Ot her somatoform disorders Changes in skin texture 05/02/2021 DX:Gomez es in skin texture Chest pain 03/07/2021 DX:Chest pain Gasping for breath 03/07/2021 DX:Gasping fo r breath Dysuria 03/10/2021 DX:Dysuria Urinary incontinence 03/07/2021 DX:Urinary incontinence Elevated blood pressure read ing without diagnosis of hypertension 08/15/2021 DX:Elevated blood pr essure reading without diagnosis of hypertension Knee pain, bilateral 03/10/2021 DX:Knee tommy n, bilateral Pain in joint of left wrist 07/26/2021 DX:P ain in joint of left wrist Lumbago with sciatica 07/15/2020 DX:Lumbago with sciatica Iliotibial band friction syn drome of both knees 07/15/2020 DX:Iliotibial band friction syndrome of both knees Fibromyalgia 03/07/2021 DX:Fibromyalgia Greater trochanteric pain syndrome 07/15/2020 DX:Greater trochanteric pain syndrome Sacroiliac joint pain 07/15/2020 DX:Sacroil iac joint pain Visual impairment 07/15/2020 DX:Visual impa irment Chronic low back pain 07/15/2020 DX:Chronic low back pain; COMMENT: s/p JOSE [facility] Pain Management Multiple complications of ty pe 2 diabetes mellitus ([facility] V24, [facility] V28) 07/15/2020 DX: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 (HCC) Benign paroxysmal vertigo of both ears DX:Benign paroxysmal vertigo of both ears Ophthalmic migraine 07/15/2020 DX:Ophthalmi c migraine Osteoarthritis 07/15/2020 DX:Osteoarthriti s Morbid obesity ([facility] V24, [facility] V28) 07/15/2020 DX:Morbid obesity (HCC) History of endometrial biopsy 07/15/2020 DX :History of endometrial biopsy Primary fibromyalgia syndrome 07/15/2020 DX :Primary fibromyalgia syndrome Internal hemorrhoids 07/15/2021 DX:Internal hemorrhoids Edema of lower extremity 07/15/2020 DX:Jorge Luis a of lower extremity Insomnia 07/15/2020 DX:Insomnia Anxiety disorder 07/15/2020 DX:Anxiety diso rder Major depressive disorder, s darrius episode 07/15/2020 DX:Major depressive disorder , single episode Mixed hyperlipidemia 07/15/2020 DX:Mixed hy perlipidemia Impaired glucose tolerance 07/15/2020 DX:Im paired glucose tolerance Hypertensive disorder 07/15/2020 DX:Hyperte nsive disorder Hypothyroidism 07/15/2020 DX:Hypothyroidis m Social History Tobacco Use Types Packs/Day Years Used Date Smoking Tobacco: Never Smokeless Tobacco: Never Alcohol Use Standard Drinks/Week Comments No 0 (1 standard drink = 0.6 oz pur e alcohol) Comments No Sex and Gender Information Value Date Recorded Sex Assigned at Female 10/07/2024 9:49 AM EST Legal Sex Female 3:32 PM EST Gender Identity Female 10/07/2024 9:49 AM EST Sexual Orientation Straight 10/07/2024 9: 49 AM EST Obstetrics History Para Term AB IAB SAB Ectopic Multiple Livin g Live Births 2 Last Filed Vital Signs Vital Sign Reading Time Taken Comments Blood Pressure 124/62 02/08/2023 10:01 AM EDT Si tting L Arm Pulse 67 02/08/2023 10:01 AM EDT Temperature - - Respiratory Rate - - Oxygen Saturation - - Inhaled Oxygen Concentration - - Weight 92.5 kg (204 lb) 10/27/2024 10:15 AM EST Height 154.9 cm (5' 1 ) 10/27/2024 10:15 AM EST Body Mass Index 38.55 10/27/2024 10:15 AM EST Plan of Treatment Upcoming Encounters Date Type Department Care Team (Late st Contact Info) Description 07/15/2025 2:45 PM EDT Consult Orthopedic Surgery - [place] [address] [id number] John Delgado, DPM [address] [address] 08/04/2025 7:00 AM EDT Ancillary Procedure [facility] [address] [facility] [address] [place] [address] Health Maintenance Due Date Last Done Comments Diabetes: Annual Foot Exam 1976 Diabetes: Annual Retina Eye Exam 1976 Cervical Cancer Screening: Pap Smear 1987 Colorectal Cancer Screening: Colonoscopy 10/18/2022 HIV Screening 10/18/2022 Medicare Annual Wellness Visit 10/18/2022 Social Influencers of Health Screening 10/18/2022 COVID-19 Vaccine ( season) 2024 05/25/2021, 03/08/2021 Hepatitis B Vaccines (2 of 2 - CpG 2-dose series) 01/01/2025 12/04/2024 Diabetes: Annual Urine Albumin-Creatinine Ratio (uACR) 02/20/2025 02/21/2024, 12/12/2022, 07/08/2019 Influenza Vaccine (#1) 2025 , 10/12/2020, 09/25/2019, Additional history exists Diabetes: Blood Sugar Control Test (HGBA1C) 09/08/2025 03/09/2025, 12/04/2024, 02/21/2024 Depression Screening 03/05/2026 03/05/2025 Diabetes: Annual GFR (Glomerular Filtration Rate) 03/09/2026 03/09/2025, 12/04/2024, 02/21/2024 Hypertension/CHF/CAD Annual BMP Blood Test 03/09/2026 03/09/2025, 12/04/2024, 02/21/2024 Breast Cancer Screening 10/27/2026 10/27/20, 02/20/2023, 01/10/2022, Additional history exists Cholesterol Screening (Lipid Panel) 12/04/2029 12/04/2024, 11/20/2023, 07/08/2019, Additional history exists DTaP,Tdap,and Td Vaccines (3 - Td or Tdap) 10/12/2030 10/12/2020, 01/05/2013 Osteoporosis Screening (Bone Density Screening) 06/01/2031 06/01/2021 Hepatitis C Screening Completed 12/12/2022 Pneumococcal Vaccine: 50+ Years Completed 05/17/2023, 10/12/2020 Zoster Vaccines Completed 05/17/2023, 10/12/2020 HIB Vaccines Aged Out No longer eligi ble based on patient's age to complete this topic HPV Vaccines Aged Out No longer eligi ble based on patient's age to complete this topic Hepatitis A Vaccines Aged Out No long er eligible based on patient's age to complete this topic IPV Vaccines Aged Out No longer eligi ble based on patient's age to complete this topic MMR Vaccines Aged Out No longer eligi ble based on patient's age to complete this topic Meningococcal ACWY Vaccine Aged Out N o longer eligible based on patient's age to complete this topic Meningococcal B Vaccine Aged Out No l onger eligible based on patient's age to complete this topic RSV Immunization Patients Under 20 months Aged Out No longer eligible based on patient's age to complete this topic Varicella Vaccines Aged Out No longer eligible based on patient's age to complete this topic Procedures Procedure Name Priority Date/Time Associated Diagnosis Comments XR FOOT 3+ VIEWS RIGHT Routine 05/06/2025 2:28 PM EDT Pain in right toe(s) XR CHEST 2 VIEWS Routine 03/09/2025 9:24 AM EDT Shortness of breath Dizziness and giddiness MG MAMMO DIGITAL SCREENING W GREGG BILAT Routine 10/27/2024 10:36 AM EST Encounter for screening mammogram for malignant neoplasm of breast SHARON DEXA AXIAL SKELETON Routine 06/01/2021 10:57 AM EDT Encounter for screening for osteoporosis from Last 3 Months or Most Recently Relevant to Health Maintenance Results * XR Foot 3+ Views Right (05/06/2025 2:28 PM EDT) Anatomical Region Laterality Modality Lower Extremities, Foot Right Radiogra phic Imaging 05/10/2025 8:05 AM EDT Impressions 05/10/2025 8:06 AM EDT There is evidence of minimal osteoarthritis with a small osteophyte projecting from the dorsal aspect of the navicular, and a small inferior calcaneal osteophyte. Otherwise, normal examination, without acute findings. Code 50525 -------- FINAL REPORT -------- Dictated By: Tahir Gonzalez Dictated Date: 05/10/2025 08:05 ET Assigned Physician: Tahir Gonzalez Reviewed and Electronically Signed By: Tahir Gonzalez Signed Date: 05/10/2025 08:06 ET Workstation ID: [id number] Transcribed By: Self Edit Transcribed Date: 05/10/2025 08:05 ET Narrative 05/10/2025 8:06 AM EDT HISTORY: The patient is a 59-year-old female with right foot pain, particularly in the first toe. No history of trauma is provided. FINDINGS: AP, lateral, and oblique views of the right foot are obtained. The study demonstrates no fracture, dislocation, or significant arthritic change. A small inferior calcaneal osteophyte is noted and a small osteophyte arises from the dorsal aspect of the navicular consistent with minimal osteoarthritis. No soft tissue abnormality is seen. Procedure Note Tahir Gonzalez MD - 05/10/2025 HISTORY: The patient is a 59-year-old female with right foot pain,particularly in the first toe. No history of trauma is provided. FINDINGS: AP, lateral, and oblique views of the right foot are obtained.The study demonstrates no fracture, dislocation, or significant arthriticchange. A small inferior calcaneal osteophyte is noted and a smallosteophyte arises from the dorsal aspect of the navicular consistent withminimal osteoarthritis. No soft tissue abnormality is seen. IMPRESSION: There is evidence of minimal osteoarthritis with a small osteophyteprojecting from the dorsal aspect of the navicular, and a small inferiorcalcaneal osteophyte. Otherwise, normal examination, without acutefindings. Code 58051 -------- FINAL REPORT -------- Dictated By: Tahir Gonzalez Dictated Date: 05/10/2025 08:05 ET Assigned Physician: Tahir Gonzalez Reviewed and Electronically Signed By: Tahir Gonzalez Signed Date: 05/10/2025 08:06 ET Workstation ID: [id number] Transcribed By: Self Edit Transcribed Date: 05/10/2025 08:05 ET Terese DE LA [facility]A IMG XR PROCEDURES Gloria l Result * XR Chest 2 Views (03/09/2025 9:24 AM EDT) Anatomical Region Laterality Modality Body Radiographic Remedios ging 03/09/2025 10:3 0 AM EDT Impressions 03/09/2025 10:32 AM EDT No acute chest disease. -------- FINAL REPORT -------- Dictated By: Wolfgang Arreaga Dictated Date: 03/09/2025 10:30 ET Assigned Physician: Wolfgang Arreaga Reviewed and Electronically Signed By: Wolfgang Arreaga Signed Date: 03/09/2025 10:32 ET Workstation ID: [id number] Transcribed By: Self Edit Transcribed Date: 03/09/2025 10:30 ET Narrative 03/09/2025 10:32 AM EDT EXAMINATION: CHEST CLINICAL INFORMATION: Shortness of breath. Dizziness. Dyspnea on exertion. Symptoms for 5 days COMPARISON: Frontal view 11/21/20 TECHNIQUE: 2 views of the chest FINDINGS: There is some tortuosity aorta. The cardiac size is top normal. There is no mediastinal or hilar mass. No vascular congestion. No focal pneumonia or major zone of atelectasis. The visualized pleural margins are within normal limits. There are osteophytes in the spine. Procedure Note Wolfgang Arreaga MD - 03/09/2025 EXAMINATION: CHEST CLINICAL INFORMATION: Shortness of breath. Dizziness. Dyspnea on exertion. Symptoms for 5 days COMPARISON: Frontal view 11/21/20 TECHNIQUE: 2 views of the chest FINDINGS: There is some tortuosity aorta. The cardiac size is top normal. There isno mediastinal or hilar mass. No vascular congestion. No focal pneumonia or major zone of atelectasis. The visualized pleuralmargins are within normal limits. There are osteophytes in the spine. IMPRESSION: No acute chest disease. -------- FINAL REPORT -------- Dictated By: Wolfgang Arreaga Dictated Date: 03/09/2025 10:30 ET Assigned Physician: Wolfgang Arreaga Reviewed and Electronically Signed By: Wolfgang Arreaga Signed Date: 03/09/2025 10:32 ET Workstation ID: [id number] Transcribed By: Self Edit Transcribed Date: 03/09/2025 10:30 ET us Terese DE [facility] IMG XR PROCEDURES Gloria l Result * MG Mammo Digital Screening w Gregg bilat (10/27/2024 10:36 AM EST) Anatomical Region Laterality Modality Breast Bilateral Mammography 10/29/2024 12:3 8 PM EST Impressions 10/29/2024 12:43 PM EST Benign. BI-RADS CATEGORY: 2 - BENIGN RECOMMENDATION: Screening bilateral mammogram is recommended in 1 year. Mammo Location: [facility], [address] [place] [address], [phone], . -------- FINAL REPORT -------- Dictated By: PITO CHA Dictated Date: 10/29/2024 12:38 ET Assigned Physician: PITO CHA Reviewed and Electronically Signed By: PITO CHA Signed Date: 10/29/2024 12:43 ET Workstation ID: [id number] Transcribed By: Self Edit Transcribed Date: 10/29/2024 12:38 ET Narrative 10/29/2024 12:43 PM EST CLINICAL: 59 years old, Female, routine annual exam. No personal or family history of breast cancer is reported. COMPARISON: 02/15/2023 TECHNIQUE: Bilateral MLO and CC views were obtained digitally with 3-D mammogram (digital breast tomosynthesis). In addition bilateral exaggerated cc views and a right nipple in profile were obtained. Computer-aided detection was utilized in evaluation of this exam (CAD). FINDINGS: There is no evidence of suspicious mass or architectural distortion. No worrisome calcifications are evident. There has been no significant change from prior exam(s). Bilateral benign dermal calcifications are seen. BREAST DENSITY: A - The breasts are almost entirely fatty. Procedure Note Pito Cha MD - 10/29/2024 CLINICAL: 59 years old, Female, routine annual exam. No personal orfamily history of breast cancer is reported. COMPARISON: 02/15/2023 TECHNIQUE: Bilateral MLO and CC views were obtained digitally with 3-Dmammogram (digital breast tomosynthesis). In addition bilateralexaggerated cc views and a right nipple in profile were obtained.Computer-aided detection was utilized in evaluation of this exam (CAD). FINDINGS: There is no evidence of suspicious mass or architectural distortion. Noworrisome calcifications are evident. There has been no significantchange from prior exam(s). Bilateral benign dermal calcifications areseen. BREAST DENSITY: A - The breasts are almost entirely fatty. IMPRESSION: Benign. BI-RADS CATEGORY: 2 - BENIGN RECOMMENDATION: Screening bilateral mammogram is recommended in 1 year. Mammo Location: [facility], [address] [place] [address], [id number], . -------- FINAL REPORT -------- Dictated By: PITO CHA Dictated Date: 10/29/2024 12:38 ET Assigned Physician: PITO CHA Reviewed and Electronically Signed By: PITO CHA Signed Date: 10/29/2024 12:43 ET Workstation ID: [id number] Transcribed By: Self Edit Transcribed Date: 10/29/2024 12:38 ET us Terese Roth PA IMG BI PROCEDURES Gloria l Result * SHARON DEXA AXIAL SKELETON (06/01/2021 10:57 AM EDT) Anatomical Region Laterality Modality Mammography 06/01/2021 8:54 AM EDT Narrative 06/01/2021 10:57 AM EDT [facility] Diagnostic Imaging Department [address] [place] [id number] Patient: FRANKLIN CHIN D.O.B./Age/Sex: 1965 - 55 - F Unit#: [id number] Location/Status: SPDIMAM/REG CLI [facility]em[facility] Order[facility] Physician: FAY BUSCH Sharon Dexa Axial Skeleton - 06/01/21919 HISTORY: The patient is a 55-year-old postmenopausal female with clinical concern for metabolic bone disease. FINDINGS: Dual energy x-ray absorptiometry of the lumbar spine and femurs is performed. The mean bone mineral density at L2-L4 is 1.192 gm/cm2. This yields a T-score of -0.1 and a Z-score of -0.5 which is diagnostic of normal bone mineral density. The mean bone mineral density of the femurs bilaterally is 1.14 gm/cm2. This yields a T-score of 1.1 and a Z-score of 0.8 which is diagnostic of normal bone mineral density.. IMPRESSION: 1. Normal bone mineral density. 2. FRAX analysis yields a 10-year probability of major osteoporotic fracture of 2.4% and a 10-year probability of hip fracture of 0%. Code 08795 Dictating Physician: BELKIS BECKFORD MD Electronically Signed by: BELKIS BECKFORD MD Dic Date/Time: 06/01/21 105 Sign date/Time: 06/01/21 105 Procedure Note Tiara Beckford MD - 11/07/2022 [facility] Diagnostic Imaging Department [address] [place] [address] Patient: FRANKLIN CHIN D.O.B./Age/Sex: 1965 - 55 - F Unit#: [id number] Location/Status: SPDIMA/REG CLI Mnemonic[facility] Ordering Physician: FAY BUSCH Sharon Dexa Axial Skeleton - 06/01/21919 HISTORY: The patient is a 55-year-old postmenopausal female withclinical concern for metabolic bone disease. FINDINGS: Dual energy x-ray absorptiometry of the lumbar spine and femursis performed. The mean bone mineral density at L2-L4 is 1.192 gm/cm2. Thisyields a T-score of -0.1 and a Z-score of -0.5 which is diagnostic of normal bonemineral density. The mean bone mineral density of the femurs bilaterally is 1.14 gm/cm2.This yields a T-score of 1.1 and a Z-score of 0.8 which is diagnostic of normalbone mineral density.. IMPRESSION: 1. Normal bone mineral density. 2. FRAX analysis yields a 10-year probability of major osteoporoticfracture of 2.4% and a 10-year probability of hip fracture of 0%. Code 36449 Dictating Physician: BELKIS BECKFORD MD Electronically Signed by: BELKIS BECKFORD MD Dic Date/Time: 06/01/21 1055 Sign date/Time: 06/01/21 105 Fay Busch NP IMG BI PROCEDURES Final Res ult from Last 3 Months or Most Recently Relevant to Health Maintenance Insurance [employer] Member Subscriber Plan / Payer (Ef fective 2019-Present) Name:Franklin Chin Relation to Subscriber:Self Name:Franklin Chin Payer ID:[id number] Group ID:[id number] Type:Not on file Address: [place] [address] [address] Care Teams Plant Science Professor Relationship Specialty Start Date End Date Terese Roth PA [address] [place] [address] PCP - General 02/08/23
== END 2025-05-20 11:55 | disposition home or self-care (01) ==
PROVIDERS: Emergency Provider Emergency Medicine
DX: M25.561 Pain in right knee (principal); E11.9 Type 2 diabetes mellitus without complications; I10 Essential (primary) hypertension; E03.9 Hypothyroidism, unspecified
CPT/HCPCS: 73562; 99283

== ENCOUNTER → 2025-05-20 10:09 | Outpatient (BNV) | payer OTHER, SELFPAY | PROVIDERS: Emergency Provider Emergency Medicine; Visit Provider Radiology Diagnostic Radiology | DX: M25.561 Pain in right knee (principal) | CPT/HCPCS: 73562 ==